=== PATIENT | female | born 1955 | race Caucasian/White ===

== ENCOUNTER 2020-05-04 08:43 | Observation (INO) | payer BC ==
--- NOTE | 2020-05-04 09:08 | EDM.PDOC ---
ED HPI GENERAL MEDICAL PROBLEM - General Chief Complaint: Syncope Stated Complaint: syncope Time Seen by Provider: 05/04/20 09:08 Source of Information: Reports: Patient History Limitations: Reports: No Limitations - History of Present Illness INITIAL COMMENTS - FREE TEXT/NARRATIVE: 64 yo F who presented to the ER following a syncope episode in [facility] and was found to be Hypoglycemic with Blood sugar 26. Reports that she had a very small supper and this morning she had a small cranberry juice before going to [facility]. While at [facility], she apparently passed out. A physician who was nearby did 2 chest compressions - was unclear if patient actually lost her pulse. EMS was called and on arrival blood sugar was 26. EMS administered glucose at the scene and Blood sugar on arrival to the ER was 84. Family noted that patient has had another episode of syncope about 2 years ago -- was evaluated in the ER at the time but was never followed up. No fever. Onset: Today Onset Date: 05/04/20 Improves with: Reports: None - Related Data Allergies Allergy/AdvReac Type Severity Reaction Status Date / Time No Known Allergies Allergy Verified 05/04/20 09:02 Home Meds: Home Meds Aspirin [Adult Low Dose Aspirin EC] 81 mg PO DAILY 05/04/20 [History] Folic Acid 0 mg PO DAILY 05/04/20 [History] Vit A/C/E AC/Znox/Cupric Oxide [Eye Vitamin-Minerals Tablet] 1 tab PO DAILY 05/04/20 [History] ED ROS GENERAL - Review of Systems Review Of Systems: See Below Constitutional: Reports: No Symptoms HEENT: Reports: No Symptoms Respiratory: Reports: No Symptoms Cardiovascular: Reports: No Symptoms Endocrine: Reports: No Symptoms GI/Abdominal: Reports: No Symptoms : Reports: No Symptoms Musculoskeletal: Reports: No Symptoms Skin: Reports: No Symptoms Neurological: Reports: No Symptoms Psychiatric: Reports: No Symptoms Hematologic/Lymphatic: Reports: No Symptoms Immunologic: Reports: No Symptoms - Physical Exam Exam: See Below Exam Limited By: No Limitations General Appearance: Alert, WD/WN, No Apparent Distress Eye Exam: Bilateral Eye: PERRL Ears: Normal External Exam, Normal Canal, Normal TMs Nose: Normal Inspection, Normal Mucosa, No Blood Throat/Mouth: Normal Inspection, Normal Lips, Normal Teeth, Normal Gums, Normal Oropharynx, Normal Voice Head Exam: Atraumatic, Normocephalic Neck: Normal Inspection, Supple, Non-Tender, Full Range of Motion Respiratory/Chest: No Respiratory Distress, Lungs Clear, Normal Breath Sounds, No Accessory Muscle Use Cardiovascular: Normal Peripheral Pulses, Regular Rate, Rhythm, No Edema GI/Abdominal: Normal Bowel Sounds, Soft, Non-Tender, No Organomegaly, No Distention Neuro Exam (Abbreviated): Alert, Oriented, CN II-XII Intact, Normal Cognition, Normal Gait, Normal Reflexes, No Motor/Sensory Deficits Back Exam: Normal Inspection Extremities: Normal Inspection, Normal Range of Motion, Non-Tender, No Pedal Edema Psychiatric: Normal Affect, Normal Mood Skin Exam: Warm, Dry, Intact, Normal Color, No Rash Course - Orders/Labs/Meds Orders: Active Orders 24 hr Category Date Time Status CXR [Chest 2V] [CR] Stat Exams 05/04/20 09:19 Taken Head wo Cont [CT] Stat Exams 05/04/20 09:05 Taken CORONAVIRUS COVID-19 SONIA [MOLEC] Stat Lab 05/04/20 12:19 Ordered Sodium Chloride 0.9% [Normal Saline] 1,000 ml Med 05/04/20 09:15 Active IV ASDIRECTED Sodium Chloride 0.9% [Saline Flush] Med 05/04/20 09:17 Active 10 ml FLUSH ASDIRECTED PRN Peripheral IV Insertion Adult [OM.PC] Routine Oth 05/04/20 08:45 Ordered Medication Orders Sodium Chloride (Normal Saline) 1,000 mls @ 100 mls/hr IV ASDIRECTED WILY Last Admin: 05/04/20 09:11 Dose: 100 mls/hr Documented by: AMARI Sodium Chloride (Saline Flush) 10 ml FLUSH ASDIRECTED PRN PRN Reason: Keep Vein Open Labs: Laboratory Tests 05/04/20 05/04/20 05/04/20 Range/Units 08:48 09:15 09:15 WBC 7.2 (3.0-10.3) x10-3/uL RBC 4.93 (3.60-5.20) x10(6)uL Hgb 14.9 (11.4-15.5) g/dL Hct 44.2 (34.2-48.2) % MCV 89.8 (76.7-100.5) fL MCH 30.2 (23.9-33.9) pg MCHC 33.6 (31.9-34.8) g/dL RDW 13.6 (12.3-16.5) % Plt Count 185 (151-488) x10(3)uL MPV 7.6 (7.1-12.4) fL Neut % (Auto) 81.7 H (30.8-76.2) % Lymph % (Auto) 11.9 L (18.4-52.1) % [place] % (Auto) 5.4 (4.4-15.7) % Eos % (Auto) 0.6 (0.6-8.1) % Baso % (Auto) 0.4 (0.2-1.5) % Neut # (Auto) 5.9 (1.5-6.3) x10-3/uL Lymph # (Auto) 0.9 L (1.0-4.4) x10-3/uL [place] # (Auto) 0.4 (0.3-1.0) x10-3/uL Eos # (Auto) 0.0 (0.0-0.8) x10-3/uL Baso # (Auto) 0.0 (0.0-0.1) x10-3/uL Sodium 134 L (135-145) mmol/L Potassium 4.2 (3.5-5.3) mmol/L Chloride 98 L (100-110) mmol/L Carbon Dioxide 24 (21-32) mmol/L BUN 11 (7-18) mg/dL Creatinine 0.8 (0.55-1.02) mg/dL Est Cr Clr Drug Dosing TNP Estimated GFR (MDRD) > 60 (>60) BUN/Creatinine Ratio 13.8 (9-20) Glucose 140 H (80-116) mg/dL POC Glucose 84 (74-100) mg/dL Hemoglobin A1c (<5.7) % Calcium 9.1 (8.6-10.2) mg/dL Total Bilirubin 0.7 (0.1-1.3) mg/dL AST 19 (5-25) IU/L ALT 21 (12-36) U/L Alkaline Phosphatase 62 (56-112) IU/L Troponin I (4.0-60.3) pg/mL Total Protein 6.9 (6.0-8.0) g/dL Albumin 4.1 (3.2-4.6) g/dL Globulin 2.8 g/dL Albumin/Globulin Ratio 1.5 TSH, Ultra Sensitive (0.36-3.74) IU/mL Urine Color (YELLOW) Urine Appearance (CLEAR) Urine pH (5.0-6.5) Ur Specific [place] (1.010-1.025) Urine Protein (NEGATIVE) mg/dL Urine Glucose (UA) (NORMAL) mg/dL Urine Ketones (NEGATIVE) mg/dL Urine Occult Blood (NEGATIVE) Urine Nitrite (NEGATIVE) Urine Bilirubin (NEGATIVE) Urine Urobilinogen (NEGATIVE) mg/dL Ur Leukocyte Esterase (NEGATIVE) U Hyaline Cast (Auto) (NS) Urine RBC (0-5) Urine WBC (0-5) Ur Squamous Epith Cells (NS,R,O) Urine Bacteria (NS) Fine Granular Casts (NS) Coarse Granular Casts (NS) 05/04/20 05/04/20 05/04/20 Range/Units 09:15 09:15 09:15 WBC (3.0-10.3) x10-3/uL RBC (3.60-5.20) x10(6)uL Hgb (11.4-15.5) g/dL Hct (34.2-48.2) % MCV (76.7-100.5) fL MCH (23.9-33.9) pg MCHC (31.9-34.8) g/dL RDW (12.3-16.5) % Plt Count (151-488) x10(3)uL MPV (7.1-12.4) fL Neut % (Auto) (30.8-76.2) % Lymph % (Auto) (18.4-52.1) % [place] % (Auto) (4.4-15.7) % Eos % (Auto) (0.6-8.1) % Baso % (Auto) (0.2-1.5) % Neut # (Auto) (1.5-6.3) x10-3/uL Lymph # (Auto) (1.0-4.4) x10-3/uL [place] # (Auto) (0.3-1.0) x10-3/uL Eos # (Auto) (0.0-0.8) x10-3/uL Baso # (Auto) (0.0-0.1) x10-3/uL Sodium (135-145) mmol/L Potassium (3.5-5.3) mmol/L Chloride (100-110) mmol/L Carbon Dioxide (21-32) mmol/L BUN (7-18) mg/dL Creatinine (0.55-1.02) mg/dL Est Cr Clr Drug Dosing Estimated GFR (MDRD) (>60) BUN/Creatinine Ratio (9-20) Glucose (80-116) mg/dL POC Glucose (74-100) mg/dL Hemoglobin A1c 4.9 (<5.7) % Calcium (8.6-10.2) mg/dL Total Bilirubin (0.1-1.3) mg/dL AST (5-25) IU/L ALT (12-36) U/L Alkaline Phosphatase (56-112) IU/L Troponin I < 4.0 L (4.0-60.3) pg/mL Total Protein (6.0-8.0) g/dL Albumin (3.2-4.6) g/dL Globulin g/dL Albumin/Globulin Ratio TSH, Ultra Sensitive 3.67 (0.36-3.74) IU/mL Urine Color (YELLOW) Urine Appearance (CLEAR) Urine pH (5.0-6.5) Ur Specific [place] (1.010-1.025) Urine Protein (NEGATIVE) mg/dL Urine Glucose (UA) (NORMAL) mg/dL Urine Ketones (NEGATIVE) mg/dL Urine Occult Blood (NEGATIVE) Urine Nitrite (NEGATIVE) Urine Bilirubin (NEGATIVE) Urine Urobilinogen (NEGATIVE) mg/dL Ur Leukocyte Esterase (NEGATIVE) U Hyaline Cast (Auto) (NS) Urine RBC (0-5) Urine WBC (0-5) Ur Squamous Epith Cells (NS,R,O) Urine Bacteria (NS) Fine Granular Casts (NS) Coarse Granular Casts (NS) 05/04/20 05/04/20 Range/Units 09:45 11:48 WBC (3.0-10.3) x10-3/uL RBC (3.60-5.20) x10(6)uL Hgb (11.4-15.5) g/dL Hct (34.2-48.2) % MCV (76.7-100.5) fL MCH (23.9-33.9) pg MCHC (31.9-34.8) g/dL RDW (12.3-16.5) % Plt Count (151-488) x10(3)uL MPV (7.1-12.4) fL Neut % (Auto) (30.8-76.2) % Lymph % (Auto) (18.4-52.1) % [place] % (Auto) (4.4-15.7) % Eos % (Auto) (0.6-8.1) % Baso % (Auto) (0.2-1.5) % Neut # (Auto) (1.5-6.3) x10-3/uL Lymph # (Auto) (1.0-4.4) x10-3/uL [place] # (Auto) (0.3-1.0) x10-3/uL Eos # (Auto) (0.0-0.8) x10-3/uL Baso # (Auto) (0.0-0.1) x10-3/uL Sodium (135-145) mmol/L Potassium (3.5-5.3) mmol/L Chloride (100-110) mmol/L Carbon Dioxide (21-32) mmol/L BUN (7-18) mg/dL Creatinine (0.55-1.02) mg/dL Est Cr Clr Drug Dosing Estimated GFR (MDRD) (>60) BUN/Creatinine Ratio (9-20) Glucose (80-116) mg/dL POC Glucose 161 H (74-100) mg/dL Hemoglobin A1c (<5.7) % Calcium (8.6-10.2) mg/dL Total Bilirubin (0.1-1.3) mg/dL AST (5-25) IU/L ALT (12-36) U/L Alkaline Phosphatase (56-112) IU/L Troponin I (4.0-60.3) pg/mL Total Protein (6.0-8.0) g/dL Albumin (3.2-4.6) g/dL Globulin g/dL Albumin/Globulin Ratio TSH, Ultra Sensitive (0.36-3.74) IU/mL Urine Color Yellow (YELLOW) Urine Appearance Clear (CLEAR) Urine pH 7.0 H (5.0-6.5) Ur Specific [place] 1.010 (1.010-1.025) Urine Protein Trace (NEGATIVE) mg/dL Urine Glucose (UA) Normal (NORMAL) mg/dL Urine Ketones 15 H (NEGATIVE) mg/dL Urine Occult Blood Negative (NEGATIVE) Urine Nitrite Negative (NEGATIVE) Urine Bilirubin Negative (NEGATIVE) Urine Urobilinogen Normal (NEGATIVE) mg/dL Ur Leukocyte Esterase Negative (NEGATIVE) U Hyaline Cast (Auto) Many H (NS) Urine RBC 0-5 (0-5) Urine WBC 0-5 (0-5) Ur Squamous Epith Cells Occasional (NS,R,O) Urine Bacteria Rare H (NS) Fine Granular Casts Moderate H (NS) Coarse Granular Casts Moderate H (NS) Meds: Medications Generic Name Dose Route Start Last Admin Trade Name Freq PRN Reason Stop Dose Admin Sodium Chloride 1,000 mls @ 100 mls/hr 05/04/20 09:15 05/04/20 09:11 Normal Saline IV 100 mls/hr ASDIRECTED WILY Administration Sodium Chloride 10 ml 05/04/20 09:17 Saline Flush FLUSH ASDIRECTED PRN Keep Vein Open - Re-Assessments/Exams Free Text/Narrative Re-Assessment/Exam: 05/04/20 13:13 D/w Dr. Du -- Who graciously admitted patient to the Hospital for observation Departure - Departure Time of Disposition: 10:46 Disposition: Admitted As Inpatient 67 Condition: Good Clinical Impression: Hypoglycemia, Syncope, Syncope and collapse - Discharge Information *PRESCRIPTION DRUG MONITORING PROGRAM REVIEWED*: No *COPY OF PRESCRIPTION DRUG MONITORING REPORT IN PATIENT AUGUSTIN: No - Problem List & Annotations (1) Hypoglycemia SNOMED Code(s): 671000691 Code(s): E16.2 - HYPOGLYCEMIA, UNSPECIFIED Status: Acute Current Visit: Yes - Problem List Review Problem List Initiated/Reviewed/Updated: Yes - My Orders Last 24 Hours: My Active Orders 05/04/20 08:45 Peripheral IV Insertion Adult [OM.PC] Routine 05/04/20 09:05 Head wo Cont [CT] Stat 05/04/20 09:15 Sodium Chloride 0.9% [Normal Saline] 1,000 ml IV ASDIRECTED 05/04/20 09:17 Sodium Chloride 0.9% [Saline Flush] 10 ml FLUSH ASDIRECTED PRN 05/04/20 09:19 CXR [Chest 2V] [CR] Stat - Assessment/Plan Last 24 Hours: My Active Orders 05/04/20 08:45 Peripheral IV Insertion Adult [OM.PC] Routine 05/04/20 09:05 Head wo Cont [CT] Stat 05/04/20 09:15 Sodium Chloride 0.9% [Normal Saline] 1,000 ml IV ASDIRECTED 05/04/20 09:17 Sodium Chloride 0.9% [Saline Flush] 10 ml FLUSH ASDIRECTED PRN 05/04/20 09:19 CXR [Chest 2V] [CR] Stat
[2020-05-04] MEDS ORDERED: Sodium Chloride 0.9% 1,000 ML IV SCH (09:15)
[2020-05-04] MEDS ORDERED: Sodium Chloride 0.9% 10 ML Syringe FLUSH PRN (09:17)
[2020-05-04 09:44] LABS: HEMOGLOBIN A1C 4.9 % (<5.7)
[2020-05-04] MEDS ORDERED: Enoxaparin 40 MG/0.4 ML Syringe SUBCUT SCH (13:30)
--- NOTE | 2020-05-04 13:40 | PCM.HP.2 ---
H&P History of Present Illness - General Date of Service: 05/04/20 Admit Problem/Dx: Admission Diagnosis/Problem Admission Diagnosis/Problem Syncope Source of Information: Patient, EMS, Family History Limitations: Reports: No Limitations - History of Present Illness Initial Comments - Free Text/Narative: This is a 64-year-old female patient that's previously healthy. She was in buddhism and she felt lightheaded and like she was going to pass out. She told her and grabbed her mask and the next thing she no she was waking up on the ground. Her states that he called Dr. Green was attending a buddhism. Dr. Green talk to the ER nurses stated he couldn't feel a pulse and did to chest compressions and she woke up. After that she felt relatively well. Patient has lost 160 pounds in the last several years and That off. She has no medical problems. She had her tonsils removed and that's the only surgery she's had. She is only on [id number] medications. She denies diplopia, blurred vision, dysphagia, aphasia, lateralized weakness. She denies palpitations. She had an episode where she had like a syncopal episode in a car onetime years ago. He says she's been feeling well without cough, fevers, chills, runny nose. She says she does have some anxiety that she is able to maintain without medications. Ambulance arrived and her blood sugar was 24 and the gave her some glucose by mouth as she was easily able to take. It was over in the 80s when she arrived to the hospital. 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: - Past Surgical History HEENT Surgical History: Reports: Tonsillectomy Social & Family History - Tobacco Use Tobacco Use Status *Q: Never Tobacco User - Alcohol Use Days Per Week of Alcohol Use: 3 Number of Drinks Per Day: 4 Total Drinks Per Week: 12 - Recreational Drug Use Recreational Drug Use: No H&P Review of Systems - Review of Systems: Review Of Systems: See Below General: Reports: No Symptoms HEENT: Reports: No Symptoms Pulmonary: Reports: No Symptoms Cardiovascular: Reports: No Symptoms Gastrointestinal: Reports: No Symptoms Genitourinary: Reports: No Symptoms Musculoskeletal: Reports: No Symptoms Skin: Reports: No Symptoms Psychiatric: Reports: Anxiety Neurological: Reports: Syncope Hematologic/Lymphatic: Reports: No Symptoms Immunologic: Reports: No Symptoms Exam - Exam Exam: See Below - Vital Signs Weight: 165 lb - Exam General: Alert, Oriented, Cooperative HEENT: PERRLA, Conjunctiva Clear, EACs Clear, EOMI, Hearing Intact, Mucosa Moist & [place], Nares Patent, Normal Nasal Septum, Posterior Pharynx Clear, Pupils Equal, Pupils Reactive, TMs Clear, Other (Not able to visualize the fundus.) Neck: Supple, Trachea Midline, Full Range of Motion. No: Carotid Bruit Lungs: Clear to Auscultation, Normal Respiratory Effort. No: Crackles, Rales, Rhonchi Cardiovascular: Regular Rate, Regular Rhythm, Systolic Murmur GI/Abdominal Exam: Normal Bowel Sounds, Soft, Non-Tender, No Organomegaly, No Distention, No Abnormal Bruit, No Mass Back Exam: Normal Inspection, Full Range of Motion Extremities: Normal Inspection, Normal Range of Motion, Non-Tender, No Pedal Edema Skin: Warm, Intact Neurological: Cranial Nerves Intact, Reflexes Equal Bilateral, Strength Equal Bilateral, Normal Gait, Normal Speech, Normal Tone, Sensation Intact Neuro Extensive - Mental Status: Alert, Oriented x3, Normal Mood/Affect, Normal Cognition, Memory Intact Neuro Extensive - Motor, Sensory, Reflexes: CN II-XII Intact, Normal Gait Psychiatric: Alert, Normal Affect, Normal Mood - Patient Data Lab Results Last 24 hrs: Laboratory Results - last 24 hr 05/04/20 05/04/20 05/04/20 Range/Units 08:48 09:15 09:15 WBC 7.2 (3.0-10.3) x10-3/uL RBC 4.93 (3.60-5.20) x10(6)uL Hgb 14.9 (11.4-15.5) g/dL Hct 44.2 (34.2-48.2) % MCV 89.8 (76.7-100.5) fL MCH 30.2 (23.9-33.9) pg MCHC 33.6 (31.9-34.8) g/dL RDW 13.6 (12.3-16.5) % Plt Count 185 (151-488) x10(3)uL MPV 7.6 (7.1-12.4) fL Neut % (Auto) 81.7 H (30.8-76.2) % Lymph % (Auto) 11.9 L (18.4-52.1) % [place] % (Auto) 5.4 (4.4-15.7) % Eos % (Auto) 0.6 (0.6-8.1) % Baso % (Auto) 0.4 (0.2-1.5) % Neut # (Auto) 5.9 (1.5-6.3) x10-3/uL Lymph # (Auto) 0.9 L (1.0-4.4) x10-3/uL [place] # (Auto) 0.4 (0.3-1.0) x10-3/uL Eos # (Auto) 0.0 (0.0-0.8) x10-3/uL Baso # (Auto) 0.0 (0.0-0.1) x10-3/uL Sodium 134 L (135-145) mmol/L Potassium 4.2 (3.5-5.3) mmol/L Chloride 98 L (100-110) mmol/L Carbon Dioxide 24 (21-32) mmol/L BUN 11 (7-18) mg/dL Creatinine 0.8 (0.55-1.02) mg/dL Est Cr Clr Drug Dosing TNP Estimated GFR (MDRD) > 60 (>60) BUN/Creatinine Ratio 13.8 (9-20) Glucose 140 H (80-116) mg/dL POC Glucose 84 (74-100) mg/dL Hemoglobin A1c (<5.7) % Calcium 9.1 (8.6-10.2) mg/dL Total Bilirubin 0.7 (0.1-1.3) mg/dL AST 19 (5-25) IU/L ALT 21 (12-36) U/L Alkaline Phosphatase 62 (56-112) IU/L Troponin I (4.0-60.3) pg/mL Total Protein 6.9 (6.0-8.0) g/dL Albumin 4.1 (3.2-4.6) g/dL Globulin 2.8 g/dL Albumin/Globulin Ratio 1.5 TSH, Ultra Sensitive (0.36-3.74) IU/mL Urine Color (YELLOW) Urine Appearance (CLEAR) Urine pH (5.0-6.5) Ur Specific [place] (1.010-1.025) Urine Protein (NEGATIVE) mg/dL Urine Glucose (UA) (NORMAL) mg/dL Urine Ketones (NEGATIVE) mg/dL Urine Occult Blood (NEGATIVE) Urine Nitrite (NEGATIVE) Urine Bilirubin (NEGATIVE) Urine Urobilinogen (NEGATIVE) mg/dL Ur Leukocyte Esterase (NEGATIVE) U Hyaline Cast (Auto) (NS) Urine RBC (0-5) Urine WBC (0-5) Ur Squamous Epith Cells (NS,R,O) Urine Bacteria (NS) Fine Granular Casts (NS) Coarse Granular Casts (NS) SARS-CoV-2 RNA (SONIA) (NEGATIVE) 05/04/20 05/04/20 05/04/20 Range/Units 09:15 09:15 09:15 WBC (3.0-10.3) x10-3/uL RBC (3.60-5.20) x10(6)uL Hgb (11.4-15.5) g/dL Hct (34.2-48.2) % MCV (76.7-100.5) fL MCH (23.9-33.9) pg MCHC (31.9-34.8) g/dL RDW (12.3-16.5) % Plt Count (151-488) x10(3)uL MPV (7.1-12.4) fL Neut % (Auto) (30.8-76.2) % Lymph % (Auto) (18.4-52.1) % [place] % (Auto) (4.4-15.7) % Eos % (Auto) (0.6-8.1) % Baso % (Auto) (0.2-1.5) % Neut # (Auto) (1.5-6.3) x10-3/uL Lymph # (Auto) (1.0-4.4) x10-3/uL [place] # (Auto) (0.3-1.0) x10-3/uL Eos # (Auto) (0.0-0.8) x10-3/uL Baso # (Auto) (0.0-0.1) x10-3/uL Sodium (135-145) mmol/L Potassium (3.5-5.3) mmol/L Chloride (100-110) mmol/L Carbon Dioxide (21-32) mmol/L BUN (7-18) mg/dL Creatinine (0.55-1.02) mg/dL Est Cr Clr Drug Dosing Estimated GFR (MDRD) (>60) BUN/Creatinine Ratio (9-20) Glucose (80-116) mg/dL POC Glucose (74-100) mg/dL Hemoglobin A1c 4.9 (<5.7) % Calcium (8.6-10.2) mg/dL Total Bilirubin (0.1-1.3) mg/dL AST (5-25) IU/L ALT (12-36) U/L Alkaline Phosphatase (56-112) IU/L Troponin I < 4.0 L (4.0-60.3) pg/mL Total Protein (6.0-8.0) g/dL Albumin (3.2-4.6) g/dL Globulin g/dL Albumin/Globulin Ratio TSH, Ultra Sensitive 3.67 (0.36-3.74) IU/mL Urine Color (YELLOW) Urine Appearance (CLEAR) Urine pH (5.0-6.5) Ur Specific [place] (1.010-1.025) Urine Protein (NEGATIVE) mg/dL Urine Glucose (UA) (NORMAL) mg/dL Urine Ketones (NEGATIVE) mg/dL Urine Occult Blood (NEGATIVE) Urine Nitrite (NEGATIVE) Urine Bilirubin (NEGATIVE) Urine Urobilinogen (NEGATIVE) mg/dL Ur Leukocyte Esterase (NEGATIVE) U Hyaline Cast (Auto) (NS) Urine RBC (0-5) Urine WBC (0-5) Ur Squamous Epith Cells (NS,R,O) Urine Bacteria (NS) Fine Granular Casts (NS) Coarse Granular Casts (NS) SARS-CoV-2 RNA (SONIA) (NEGATIVE) 05/04/20 05/04/20 05/04/20 Range/Units 09:45 11:48 12:19 WBC (3.0-10.3) x10-3/uL RBC (3.60-5.20) x10(6)uL Hgb (11.4-15.5) g/dL Hct (34.2-48.2) % MCV (76.7-100.5) fL MCH (23.9-33.9) pg MCHC (31.9-34.8) g/dL RDW (12.3-16.5) % Plt Count (151-488) x10(3)uL MPV (7.1-12.4) fL Neut % (Auto) (30.8-76.2) % Lymph % (Auto) (18.4-52.1) % [place] % (Auto) (4.4-15.7) % Eos % (Auto) (0.6-8.1) % Baso % (Auto) (0.2-1.5) % Neut # (Auto) (1.5-6.3) x10-3/uL Lymph # (Auto) (1.0-4.4) x10-3/uL [place] # (Auto) (0.3-1.0) x10-3/uL Eos # (Auto) (0.0-0.8) x10-3/uL Baso # (Auto) (0.0-0.1) x10-3/uL Sodium (135-145) mmol/L Potassium (3.5-5.3) mmol/L Chloride (100-110) mmol/L Carbon Dioxide (21-32) mmol/L BUN (7-18) mg/dL Creatinine (0.55-1.02) mg/dL Est Cr Clr Drug Dosing Estimated GFR (MDRD) (>60) BUN/Creatinine Ratio (9-20) Glucose (80-116) mg/dL POC Glucose 161 H (74-100) mg/dL Hemoglobin A1c (<5.7) % Calcium (8.6-10.2) mg/dL Total Bilirubin (0.1-1.3) mg/dL AST (5-25) IU/L ALT (12-36) U/L Alkaline Phosphatase (56-112) IU/L Troponin I (4.0-60.3) pg/mL Total Protein (6.0-8.0) g/dL Albumin (3.2-4.6) g/dL Globulin g/dL Albumin/Globulin Ratio TSH, Ultra Sensitive (0.36-3.74) IU/mL Urine Color Yellow (YELLOW) Urine Appearance Clear (CLEAR) Urine pH 7.0 H (5.0-6.5) Ur Specific [place] 1.010 (1.010-1.025) Urine Protein Trace (NEGATIVE) mg/dL Urine Glucose (UA) Normal (NORMAL) mg/dL Urine Ketones 15 H (NEGATIVE) mg/dL Urine Occult Blood Negative (NEGATIVE) Urine Nitrite Negative (NEGATIVE) Urine Bilirubin Negative (NEGATIVE) Urine Urobilinogen Normal (NEGATIVE) mg/dL Ur Leukocyte Esterase Negative (NEGATIVE) U Hyaline Cast (Auto) Many H (NS) Urine RBC 0-5 (0-5) Urine WBC 0-5 (0-5) Ur Squamous Epith Cells Occasional (NS,R,O) Urine Bacteria Rare H (NS) Fine Granular Casts Moderate H (NS) Coarse Granular Casts Moderate H (NS) SARS-CoV-2 RNA (SONIA) Negative (NEGATIVE) Result Diagrams: 05/04/20 09:15 05/04/20 09:15 Imaging Impressions Last 24 hrs: CT scans negative of the head. Chest x-ray looks normal with no acute changes. #1 Interpretation EKG Date: 05/04/20 Rhythm: NSR - Problem List (1) Hyponatremia SNOMED Code(s): 04949670 ICD Code: E87.1 - HYPO-OSMOLALITY AND HYPONATREMIA Status: Acute Current Visit: Yes (2) Hypoglycemia SNOMED Code(s): 651398329 ICD Code: E16.2 - HYPOGLYCEMIA, UNSPECIFIED Status: Acute Current Visit: Yes (3) Syncope SNOMED Code(s): 217253601 ICD Code: R55 - SYNCOPE AND COLLAPSE Status: Acute Current Visit: Yes Problem List Initiated/Reviewed/Updated: Yes Orders Last 24hrs: Active Orders 24 hr Category Date Time Status Admission Status [Patient Status] [ADT] Routine ADT 05/04/20 12:41 Active Patient Status [ADT] Routine ADT 05/04/20 13:29 Ordered EKG Documentation Completion [RC] ASDIRECTED Care 05/04/20 13:31 Ordered Oxygen Therapy [RC] PRN Care 05/04/20 13:29 Ordered Telemetry Monitoring [Cardiac Monitoring] [RC] .As Care 05/04/20 13:33 Ordered Directed Up With Assistance [RC] ASDIRECTED Care 05/04/20 13:29 Ordered VTE/DVT Education [RC] Per Unit Routine Care 05/04/20 13:29 Ordered Vital Signs [RC] Q4H Care 05/04/20 13:29 Ordered Regular Diet [DIET] Diet 05/04/20 Dinner Ordered CXR [Chest 2V] [CR] Stat Exams 05/04/20 09:19 Taken Echo Comp w Cont [US] Routine Exams 05/04/20 13:32 Ordered Head wo Cont [CT] Stat Exams 05/04/20 09:05 Taken CBC WITH AUTO DIFF [HEME] AM Lab 05/05/20 05:11 Ordered COMPREHENSIVE METABOLIC PN,CMP [CHEM] AM Lab 05/05/20 05:11 Ordered TROPONIN I [CHEM] AM Lab 05/05/20 05:11 Ordered Enoxaparin [Lovenox] Med 05/04/20 13:30 Ordered 40 mg SUBCUT Q24H Sodium Chloride 0.9% [Normal Saline] 1,000 ml Med 05/04/20 09:15 Stop Req IV ASDIRECTED Sodium Chloride 0.9% [Saline Flush] Med 05/04/20 09:17 Active 10 ml FLUSH ASDIRECTED PRN Convert IV to Saline Lock [OM.PC] Routine Oth 05/04/20 13:32 Ordered Peripheral IV Insertion Adult [OM.PC] Routine Oth 05/04/20 08:45 Ordered Resuscitation Status Routine Resus Stat 05/04/20 13:29 Ordered EKG 12 Lead [EK] AM Ther 05/05/20 05:11 Ordered Medication Orders Enoxaparin Sodium (Lovenox) 40 mg SUBCUT Q24H WILY Sodium Chloride (Normal Saline) 1,000 mls @ 100 mls/hr IV ASDIRECTED WILY Last Admin: 05/04/20 09:11 Dose: 100 mls/hr Documented by: AMARI Sodium Chloride (Saline Flush) 10 ml FLUSH ASDIRECTED PRN PRN Reason: Keep Vein Open Assessment/Plan Comment:: 1. Admit for observation on telemetry. 2. Patient is able to drink so stop IV fluids and saline lock IV. 3. Up with assist. 4. Recheck chem 12, CBC, troponin and EKG in the a.m. 5. Echocardiogram for new systolic murmur. 6. Regular diet 7. His hold her [id number] medications 8. COVID 19 pending 9. VTE fluxes with Lovenox 10. Full code. - Mortality Measure Prognosis:: Poor
--- NOTE | 2020-05-05 08:57 | PCM.PN ---
- General Info Date of Service: 05/05/20 Admission Dx/Problem (Free Text): Patient without concerns. She felt good all night. She had no dizziness, lightheadedness, palpitations, chest pain, shortness of breath. Telemetry normal sinus rhythm without any arrhythmias. - Patient Data Vitals - Most Recent: Last Vital Signs Temp 97.9 F 05/05/20 04:26 Pulse 75 05/05/20 04:26 Resp 16 05/05/20 04:26 BP 133/85 05/05/20 04:26 Pulse Ox 98 05/05/20 04:26 Orthostatic Blood Pressure [ 122/89 Standing] Orthostatic Blood Pressure [ 120/68 Sitting] Orthostatic Blood Pressure [ 112/62 Supine] Weight - Most Recent: 170 lb 1 oz Lab Results Last 24 Hours: Laboratory Results - last 24 hr 05/04/20 05/04/20 05/04/20 Range/Units 08:48 09:15 09:15 WBC 7.2 (3.0-10.3) x10-3/uL RBC 4.93 (3.60-5.20) x10(6)uL Hgb 14.9 (11.4-15.5) g/dL Hct 44.2 (34.2-48.2) % MCV 89.8 (76.7-100.5) fL MCH 30.2 (23.9-33.9) pg MCHC 33.6 (31.9-34.8) g/dL RDW 13.6 (12.3-16.5) % Plt Count 185 (151-488) x10(3)uL MPV 7.6 (7.1-12.4) fL Neut % (Auto) 81.7 H (30.8-76.2) % Lymph % (Auto) 11.9 L (18.4-52.1) % [place] % (Auto) 5.4 (4.4-15.7) % Eos % (Auto) 0.6 (0.6-8.1) % Baso % (Auto) 0.4 (0.2-1.5) % Neut # (Auto) 5.9 (1.5-6.3) x10-3/uL Lymph # (Auto) 0.9 L (1.0-4.4) x10-3/uL [place] # (Auto) 0.4 (0.3-1.0) x10-3/uL Eos # (Auto) 0.0 (0.0-0.8) x10-3/uL Baso # (Auto) 0.0 (0.0-0.1) x10-3/uL Sodium 134 L (135-145) mmol/L Potassium 4.2 (3.5-5.3) mmol/L Chloride 98 L (100-110) mmol/L Carbon Dioxide 24 (21-32) mmol/L BUN 11 (7-18) mg/dL Creatinine 0.8 (0.55-1.02) mg/dL Est Cr Clr Drug Dosing TNP Estimated GFR (MDRD) > 60 (>60) BUN/Creatinine Ratio 13.8 (9-20) Glucose 140 H (80-116) mg/dL POC Glucose 84 (74-100) mg/dL Hemoglobin A1c (<5.7) % Calcium 9.1 (8.6-10.2) mg/dL Total Bilirubin 0.7 (0.1-1.3) mg/dL AST 19 (5-25) IU/L ALT 21 (12-36) U/L Alkaline Phosphatase 62 (56-112) IU/L Troponin I (4.0-60.3) pg/mL Total Protein 6.9 (6.0-8.0) g/dL Albumin 4.1 (3.2-4.6) g/dL Globulin 2.8 g/dL Albumin/Globulin Ratio 1.5 TSH, Ultra Sensitive (0.36-3.74) IU/mL Urine Color (YELLOW) Urine Appearance (CLEAR) Urine pH (5.0-6.5) Ur Specific [place] (1.010-1.025) Urine Protein (NEGATIVE) mg/dL Urine Glucose (UA) (NORMAL) mg/dL Urine Ketones (NEGATIVE) mg/dL Urine Occult Blood (NEGATIVE) Urine Nitrite (NEGATIVE) Urine Bilirubin (NEGATIVE) Urine Urobilinogen (NEGATIVE) mg/dL Ur Leukocyte Esterase (NEGATIVE) U Hyaline Cast (Auto) (NS) Urine RBC (0-5) Urine WBC (0-5) Ur Squamous Epith Cells (NS,R,O) Urine Bacteria (NS) Fine Granular Casts (NS) Coarse Granular Casts (NS) SARS-CoV-2 RNA (SONIA) (NEGATIVE) 05/04/20 05/04/20 05/04/20 Range/Units 09:15 09:15 09:15 WBC (3.0-10.3) x10-3/uL RBC (3.60-5.20) x10(6)uL Hgb (11.4-15.5) g/dL Hct (34.2-48.2) % MCV (76.7-100.5) fL MCH (23.9-33.9) pg MCHC (31.9-34.8) g/dL RDW (12.3-16.5) % Plt Count (151-488) x10(3)uL MPV (7.1-12.4) fL Neut % (Auto) (30.8-76.2) % Lymph % (Auto) (18.4-52.1) % [place] % (Auto) (4.4-15.7) % Eos % (Auto) (0.6-8.1) % Baso % (Auto) (0.2-1.5) % Neut # (Auto) (1.5-6.3) x10-3/uL Lymph # (Auto) (1.0-4.4) x10-3/uL [place] # (Auto) (0.3-1.0) x10-3/uL Eos # (Auto) (0.0-0.8) x10-3/uL Baso # (Auto) (0.0-0.1) x10-3/uL Sodium (135-145) mmol/L Potassium (3.5-5.3) mmol/L Chloride (100-110) mmol/L Carbon Dioxide (21-32) mmol/L BUN (7-18) mg/dL Creatinine (0.55-1.02) mg/dL Est Cr Clr Drug Dosing Estimated GFR (MDRD) (>60) BUN/Creatinine Ratio (9-20) Glucose (80-116) mg/dL POC Glucose (74-100) mg/dL Hemoglobin A1c 4.9 (<5.7) % Calcium (8.6-10.2) mg/dL Total Bilirubin (0.1-1.3) mg/dL AST (5-25) IU/L ALT (12-36) U/L Alkaline Phosphatase (56-112) IU/L Troponin I < 4.0 L (4.0-60.3) pg/mL Total Protein (6.0-8.0) g/dL Albumin (3.2-4.6) g/dL Globulin g/dL Albumin/Globulin Ratio TSH, Ultra Sensitive 3.67 (0.36-3.74) IU/mL Urine Color (YELLOW) Urine Appearance (CLEAR) Urine pH (5.0-6.5) Ur Specific [place] (1.010-1.025) Urine Protein (NEGATIVE) mg/dL Urine Glucose (UA) (NORMAL) mg/dL Urine Ketones (NEGATIVE) mg/dL Urine Occult Blood (NEGATIVE) Urine Nitrite (NEGATIVE) Urine Bilirubin (NEGATIVE) Urine Urobilinogen (NEGATIVE) mg/dL Ur Leukocyte Esterase (NEGATIVE) U Hyaline Cast (Auto) (NS) Urine RBC (0-5) Urine WBC (0-5) Ur Squamous Epith Cells (NS,R,O) Urine Bacteria (NS) Fine Granular Casts (NS) Coarse Granular Casts (NS) SARS-CoV-2 RNA (SONIA) (NEGATIVE) 05/04/20 05/04/20 05/04/20 Range/Units 09:45 11:48 12:19 WBC (3.0-10.3) x10-3/uL RBC (3.60-5.20) x10(6)uL Hgb (11.4-15.5) g/dL Hct (34.2-48.2) % MCV (76.7-100.5) fL MCH (23.9-33.9) pg MCHC (31.9-34.8) g/dL RDW (12.3-16.5) % Plt Count (151-488) x10(3)uL MPV (7.1-12.4) fL Neut % (Auto) (30.8-76.2) % Lymph % (Auto) (18.4-52.1) % [place] % (Auto) (4.4-15.7) % Eos % (Auto) (0.6-8.1) % Baso % (Auto) (0.2-1.5) % Neut # (Auto) (1.5-6.3) x10-3/uL Lymph # (Auto) (1.0-4.4) x10-3/uL [place] # (Auto) (0.3-1.0) x10-3/uL Eos # (Auto) (0.0-0.8) x10-3/uL Baso # (Auto) (0.0-0.1) x10-3/uL Sodium (135-145) mmol/L Potassium (3.5-5.3) mmol/L Chloride (100-110) mmol/L Carbon Dioxide (21-32) mmol/L BUN (7-18) mg/dL Creatinine (0.55-1.02) mg/dL Est Cr Clr Drug Dosing Estimated GFR (MDRD) (>60) BUN/Creatinine Ratio (9-20) Glucose (80-116) mg/dL POC Glucose 161 H (74-100) mg/dL Hemoglobin A1c (<5.7) % Calcium (8.6-10.2) mg/dL Total Bilirubin (0.1-1.3) mg/dL AST (5-25) IU/L ALT (12-36) U/L Alkaline Phosphatase (56-112) IU/L Troponin I (4.0-60.3) pg/mL Total Protein (6.0-8.0) g/dL Albumin (3.2-4.6) g/dL Globulin g/dL Albumin/Globulin Ratio TSH, Ultra Sensitive (0.36-3.74) IU/mL Urine Color Yellow (YELLOW) Urine Appearance Clear (CLEAR) Urine pH 7.0 H (5.0-6.5) Ur Specific [place] 1.010 (1.010-1.025) Urine Protein Trace (NEGATIVE) mg/dL Urine Glucose (UA) Normal (NORMAL) mg/dL Urine Ketones 15 H (NEGATIVE) mg/dL Urine Occult Blood Negative (NEGATIVE) Urine Nitrite Negative (NEGATIVE) Urine Bilirubin Negative (NEGATIVE) Urine Urobilinogen Normal (NEGATIVE) mg/dL Ur Leukocyte Esterase Negative (NEGATIVE) U Hyaline Cast (Auto) Many H (NS) Urine RBC 0-5 (0-5) Urine WBC 0-5 (0-5) Ur Squamous Epith Cells Occasional (NS,R,O) Urine Bacteria Rare H (NS) Fine Granular Casts Moderate H (NS) Coarse Granular Casts Moderate H (NS) SARS-CoV-2 RNA (SONIA) Negative (NEGATIVE) 05/04/20 05/04/20 05/05/20 Range/Units 17:03 20:58 06:35 WBC 3.5 (3.0-10.3) x10-3/uL RBC 4.50 (3.60-5.20) x10(6)uL Hgb 13.7 (11.4-15.5) g/dL Hct 40.6 (34.2-48.2) % MCV 90.3 (76.7-100.5) fL MCH 30.5 (23.9-33.9) pg MCHC 33.8 (31.9-34.8) g/dL RDW 13.9 (12.3-16.5) % Plt Count 167 (151-488) x10(3)uL MPV 8.0 (7.1-12.4) fL Neut % (Auto) 65.7 (30.8-76.2) % Lymph % (Auto) 22.5 (18.4-52.1) % [place] % (Auto) 9.9 (4.4-15.7) % Eos % (Auto) 1.5 (0.6-8.1) % Baso % (Auto) 0.4 (0.2-1.5) % Neut # (Auto) 2.3 (1.5-6.3) x10-3/uL Lymph # (Auto) 0.8 L (1.0-4.4) x10-3/uL [place] # (Auto) 0.3 (0.3-1.0) x10-3/uL Eos # (Auto) 0.1 (0.0-0.8) x10-3/uL Baso # (Auto) 0.0 (0.0-0.1) x10-3/uL Sodium (135-145) mmol/L Potassium (3.5-5.3) mmol/L Chloride (100-110) mmol/L Carbon Dioxide (21-32) mmol/L BUN (7-18) mg/dL Creatinine (0.55-1.02) mg/dL Est Cr Clr Drug Dosing Estimated GFR (MDRD) (>60) BUN/Creatinine Ratio (9-20) Glucose (80-116) mg/dL POC Glucose 106 H 113 H (74-100) mg/dL Hemoglobin A1c (<5.7) % Calcium (8.6-10.2) mg/dL Total Bilirubin (0.1-1.3) mg/dL AST (5-25) IU/L ALT (12-36) U/L Alkaline Phosphatase (56-112) IU/L Troponin I (4.0-60.3) pg/mL Total Protein (6.0-8.0) g/dL Albumin (3.2-4.6) g/dL Globulin g/dL Albumin/Globulin Ratio TSH, Ultra Sensitive (0.36-3.74) IU/mL Urine Color (YELLOW) Urine Appearance (CLEAR) Urine pH (5.0-6.5) Ur Specific [place] (1.010-1.025) Urine Protein (NEGATIVE) mg/dL Urine Glucose (UA) (NORMAL) mg/dL Urine Ketones (NEGATIVE) mg/dL Urine Occult Blood (NEGATIVE) Urine Nitrite (NEGATIVE) Urine Bilirubin (NEGATIVE) Urine Urobilinogen (NEGATIVE) mg/dL Ur Leukocyte Esterase (NEGATIVE) U Hyaline Cast (Auto) (NS) Urine RBC (0-5) Urine WBC (0-5) Ur Squamous Epith Cells (NS,R,O) Urine Bacteria (NS) Fine Granular Casts (NS) Coarse Granular Casts (NS) SARS-CoV-2 RNA (SONIA) (NEGATIVE) 05/05/20 05/05/20 Range/Units 06:35 06:35 WBC (3.0-10.3) x10-3/uL RBC (3.60-5.20) x10(6)uL Hgb (11.4-15.5) g/dL Hct (34.2-48.2) % MCV (76.7-100.5) fL MCH (23.9-33.9) pg MCHC (31.9-34.8) g/dL RDW (12.3-16.5) % Plt Count (151-488) x10(3)uL MPV (7.1-12.4) fL Neut % (Auto) (30.8-76.2) % Lymph % (Auto) (18.4-52.1) % [place] % (Auto) (4.4-15.7) % Eos % (Auto) (0.6-8.1) % Baso % (Auto) (0.2-1.5) % Neut # (Auto) (1.5-6.3) x10-3/uL Lymph # (Auto) (1.0-4.4) x10-3/uL [place] # (Auto) (0.3-1.0) x10-3/uL Eos # (Auto) (0.0-0.8) x10-3/uL Baso # (Auto) (0.0-0.1) x10-3/uL Sodium 134 L (135-145) mmol/L Potassium 3.9 (3.5-5.3) mmol/L Chloride 99 L (100-110) mmol/L Carbon Dioxide 27 (21-32) mmol/L BUN 8 (7-18) mg/dL Creatinine 0.6 (0.55-1.02) mg/dL Est Cr Clr Drug Dosing 82.87 Estimated GFR (MDRD) > 60 (>60) BUN/Creatinine Ratio 13.3 (9-20) Glucose 92 (80-116) mg/dL POC Glucose (74-100) mg/dL Hemoglobin A1c (<5.7) % Calcium 8.7 (8.6-10.2) mg/dL Total Bilirubin 0.7 (0.1-1.3) mg/dL AST 14 D (5-25) IU/L ALT 20 (12-36) U/L Alkaline Phosphatase 58 (56-112) IU/L Troponin I 5.1 (4.0-60.3) pg/mL Total Protein 6.5 (6.0-8.0) g/dL Albumin 3.7 (3.2-4.6) g/dL Globulin 2.8 g/dL Albumin/Globulin Ratio 1.3 TSH, Ultra Sensitive (0.36-3.74) IU/mL Urine Color (YELLOW) Urine Appearance (CLEAR) Urine pH (5.0-6.5) Ur Specific [place] (1.010-1.025) Urine Protein (NEGATIVE) mg/dL Urine Glucose (UA) (NORMAL) mg/dL Urine Ketones (NEGATIVE) mg/dL Urine Occult Blood (NEGATIVE) Urine Nitrite (NEGATIVE) Urine Bilirubin (NEGATIVE) Urine Urobilinogen (NEGATIVE) mg/dL Ur Leukocyte Esterase (NEGATIVE) U Hyaline Cast (Auto) (NS) Urine RBC (0-5) Urine WBC (0-5) Ur Squamous Epith Cells (NS,R,O) Urine Bacteria (NS) Fine Granular Casts (NS) Coarse Granular Casts (NS) SARS-CoV-2 RNA (SONAI) (NEGATIVE) Med Orders - Current: Current Medications Enoxaparin Sodium (Lovenox) 40 mg SUBCUT Q24H [facility] Last Admin: 05/04/20 14:43 Dose: 40 mg Documented by: Sodium Chloride (Saline Flush) 10 ml FLUSH ASDIRECTED PRN PRN Reason: Keep Vein Open Last Admin: 05/04/20 09:00 Dose: 10 ml Documented by: Discontinued Medications Sodium Chloride (Normal Saline) 1,000 mls @ 100 mls/hr IV ASDIRECTED [facility] Last Admin: 05/04/20 09:11 Dose: 100 mls/hr Documented by: - Exam Quality Assessment: No: Supplemental Oxygen General: Alert, Oriented, Cooperative, No Acute Distress Lungs: Clear to Auscultation, Normal Respiratory Effort Cardiovascular: Regular Rate, Regular Rhythm, Murmurs Extremities: No Pedal Edema Sepsis Event Note - Evaluation Sepsis Screening Result: No Definite Risk - Focused Exam Vital Signs: Vital Signs Temp Pulse Resp BP Pulse Ox 05/05/20 04:26 97.9 F 75 16 133/85 98 05/04/20 23:49 97.7 F 71 16 141/87 H 98 - Problem List & Annotations (1) Hyponatremia SNOMED Code(s): 52267577 Code(s): E87.1 - HYPO-OSMOLALITY AND HYPONATREMIA Status: Acute Current Visit: Yes (2) Hypoglycemia SNOMED Code(s): 728346550 Code(s): E16.2 - HYPOGLYCEMIA, UNSPECIFIED Status: Acute Current Visit: Yes (3) Syncope SNOMED Code(s): 995688632 Code(s): R55 - SYNCOPE AND COLLAPSE Status: Acute Current Visit: Yes (4) Murmur, cardiac SNOMED Code(s): 50334902 Code(s): R01.1 - CARDIAC MURMUR, UNSPECIFIED Status: Acute Current Visit: Yes - Problem List Review Problem List Initiated/Reviewed/Updated: Yes - My Orders Last 24 Hours: My Active Orders 05/04/20 13:29 Patient Status [ADT] Routine Oxygen Therapy [RC] PRN Up With Assistance [RC] ASDIRECTED Vital Signs [RC] 08,12,16,20,00,04 Resuscitation Status Routine 05/04/20 13:30 Enoxaparin [Lovenox] 40 mg SUBCUT Q24H 05/04/20 13:32 Echo Comp w Cont [US] Routine Convert IV to Saline Lock [OM.PC] Routine 05/04/20 13:33 Telemetry Monitoring [Cardiac Monitoring] [RC] QSHIFT 05/04/20 15:35 Accu Check [Blood Glucose Check, Bedside] [RC] QIDACANDBED 05/04/20 Dinner Regular Diet [DIET] 05/05/20 05:11 EKG 12 Lead [EK] AM - Plan Plan:: EKG, telemetry normal. Sodium still 134 which is okay. Patient is asymptomatic so I will discharged today to home. She will refrain from exercising until she sees her primary provider. Echo be set up for tomorrow. I will discuss her care with her primary provider and try to get her in this week for follow-up.
--- NOTE | 2020-05-05 09:06 | PCM.DCSUM1 ---
Discharge Summary - Hospital Course Free Text/Narrative:: Hospital course-patient was admitted for observation. Initially the ER doc was going to send her home but she felt a little lightheaded so she was admitted. Her glucose was normal with her stay here. The first blood sugar was felt to be a lab error. Patient was put in telemetry for 24 hours and no arrhythmias or ectopy. She felt fine and had no symptoms. We did find a systolic murmur. Echo was set up for tomorrow. Sodium remained at 134 the rest of her labs are good. EKG is normal sinus rhythm without ST. We'll discharge to home and have her see her primary provider this week for further workup. This is most likely vasovagal to cause this. Brief History: This is a 64-year-old female patient that's previously healthy. She was in [place] and she felt lightheaded and like she was going to pass out. She told her and grabbed her mask and the next thing she no she was waking up on the ground. Her states that he called Dr. Green was attending a amish. Dr. Green talk to the ER nurses stated he couldn't feel a pulse and did to chest compressions and she woke up. After that she felt relatively well. Patient has lost 160 pounds in the last several years and That off. She has no medical problems. She had her tonsils removed and that's the only surgery she's had. She is only on [id number] medications. She denies diplopia, blurred vision, dysphagia, aphasia, lateralized weakness. She denies palpitations. She had an episode where she had like a syncopal episode in a car onetime years ago. He says she's been feeling well without cough, fevers, chills, runny nose. She says she does have some anxiety that she is able to maintain without medications. Ambulance arrived and her blood sugar was 24 and the gave her some glucose by mouth as she was easily able to take. It was over in the 80s when she arrived to the hospital. Diagnosis: Stroke: No - Discharge Data Discharge Date: 05/05/20 Discharge Disposition: Home, Self-Care 01 Condition: Good - Referral to Home Health Primary Care Physician: Gomez Gardner MD - Discharge Diagnosis/Problem(s) (1) Hyponatremia SNOMED Code(s): 78411700 ICD Code: E87.1 - HYPO-OSMOLALITY AND HYPONATREMIA Status: Acute Current Visit: Yes (2) Hypoglycemia SNOMED Code(s): 139880086 ICD Code: E16.2 - HYPOGLYCEMIA, UNSPECIFIED Status: Acute Current Visit: Yes Problem Details: Done by ambulance crew. Cerrillos to be a lab error. It was below 30 (3) Syncope SNOMED Code(s): 976393567 ICD Code: R55 - SYNCOPE AND COLLAPSE Status: Acute Current Visit: Yes (4) Murmur, cardiac SNOMED Code(s): 39978166 ICD Code: R01.1 - CARDIAC MURMUR, UNSPECIFIED Status: Acute Current Visit: Yes - Patient Instructions Diet: Regular Diet as Tolerated Activity: As Tolerated Driving: May Drive Today Showering/Bathing: May Shower Other/Special Instructions: 1. Check with Dr. Gardner this week. 2. Echocardiogram ordered outpatient. - Discharge Plan *PRESCRIPTION DRUG MONITORING PROGRAM REVIEWED*: No *COPY OF PRESCRIPTION DRUG MONITORING REPORT IN PATIENT AUGUSTIN: No Home Medications: Home Meds Aspirin [Adult Low Dose Aspirin EC] 81 mg PO DAILY 05/04/20 [History] Folic Acid 0 mg PO DAILY 05/04/20 [History] Vit A/C/E AC/Znox/Cupric Oxide [Eye Vitamin-Minerals Tablet] 1 tab PO DAILY 05/04/20 [History] Patient Handouts: Hypoglycemia, Syncope, [id number], Hypoglycemia, [id number] Forms: ED Department Discharge Referrals: Gomez Gardner MD [Primary Care Provider] - - Discharge Summary/Plan Comment DC Time >30 min.: No - Patient Data Vitals - Most Recent: Last Vital Signs Temp 97.9 F 05/05/20 04:26 Pulse 75 05/05/20 04:26 Resp 16 05/05/20 04:26 BP 133/85 05/05/20 04:26 Pulse Ox 98 05/05/20 04:26 Orthostatic Blood Pressure [ 122/89 Standing] Orthostatic Blood Pressure [ 120/68 Sitting] Orthostatic Blood Pressure [ 112/62 Supine] Weight - Most Recent: 170 lb 1 oz Lab Results - Last 24 hrs: Laboratory Results - last 24 hr 01/03/21 01/03/21 01/03/21 Range/Units 09:15 09:15 09:15 WBC 7.2 (3.0-10.3) x10-3/uL RBC 4.93 (3.60-5.20) x10(6)uL Hgb 14.9 (11.4-15.5) g/dL Hct 44.2 (34.2-48.2) % MCV 89.8 (76.7-100.5) fL MCH 30.2 (23.9-33.9) pg MCHC 33.6 (31.9-34.8) g/dL RDW 13.6 (12.3-16.5) % Plt Count 185 (151-488) x10(3)uL MPV 7.6 (7.1-12.4) fL Neut % (Auto) 81.7 H (30.8-76.2) % Lymph % (Auto) 11.9 L (18.4-52.1) % [place] % (Auto) 5.4 (4.4-15.7) % Eos % (Auto) 0.6 (0.6-8.1) % Baso % (Auto) 0.4 (0.2-1.5) % Neut # (Auto) 5.9 (1.5-6.3) x10-3/uL Lymph # (Auto) 0.9 L (1.0-4.4) x10-3/uL [place] # (Auto) 0.4 (0.3-1.0) x10-3/uL Eos # (Auto) 0.0 (0.0-0.8) x10-3/uL Baso # (Auto) 0.0 (0.0-0.1) x10-3/uL Sodium 134 L (135-145) mmol/L Potassium 4.2 (3.5-5.3) mmol/L Chloride 98 L (100-110) mmol/L Carbon Dioxide 24 (21-32) mmol/L BUN 11 (7-18) mg/dL Creatinine 0.8 (0.55-1.02) mg/dL Est Cr Clr Drug Dosing TNP Estimated GFR (MDRD) > 60 (>60) BUN/Creatinine Ratio 13.8 (9-20) Glucose 140 H (80-116) mg/dL POC Glucose (74-100) mg/dL Hemoglobin A1c (<5.7) % Calcium 9.1 (8.6-10.2) mg/dL Total Bilirubin 0.7 (0.1-1.3) mg/dL AST 19 (5-25) IU/L ALT 21 (12-36) U/L Alkaline Phosphatase 62 (56-112) IU/L Troponin I < 4.0 L (4.0-60.3) pg/mL Total Protein 6.9 (6.0-8.0) g/dL Albumin 4.1 (3.2-4.6) g/dL Globulin 2.8 g/dL Albumin/Globulin Ratio 1.5 TSH, Ultra Sensitive (0.36-3.74) IU/mL Urine Color (YELLOW) Urine Appearance (CLEAR) Urine pH (5.0-6.5) Ur Specific [place] (1.010-1.025) Urine Protein (NEGATIVE) mg/dL Urine Glucose (UA) (NORMAL) mg/dL Urine Ketones (NEGATIVE) mg/dL Urine Occult Blood (NEGATIVE) Urine Nitrite (NEGATIVE) Urine Bilirubin (NEGATIVE) Urine Urobilinogen (NEGATIVE) mg/dL Ur Leukocyte Esterase (NEGATIVE) U Hyaline Cast (Auto) (NS) Urine RBC (0-5) Urine WBC (0-5) Ur Squamous Epith Cells (NS,R,O) Urine Bacteria (NS) Fine Granular Casts (NS) Coarse Granular Casts (NS) SARS-CoV-2 RNA (SONIA) (NEGATIVE) 05/04/20 05/04/20 05/04/20 Range/Units 09:15 09:15 09:45 WBC (3.0-10.3) x10-3/uL RBC (3.60-5.20) x10(6)uL Hgb (11.4-15.5) g/dL Hct (34.2-48.2) % MCV (76.7-100.5) fL MCH (23.9-33.9) pg MCHC (31.9-34.8) g/dL RDW (12.3-16.5) % Plt Count (151-488) x10(3)uL MPV (7.1-12.4) fL Neut % (Auto) (30.8-76.2) % Lymph % (Auto) (18.4-52.1) % [place] % (Auto) (4.4-15.7) % Eos % (Auto) (0.6-8.1) % Baso % (Auto) (0.2-1.5) % Neut # (Auto) (1.5-6.3) x10-3/uL Lymph # (Auto) (1.0-4.4) x10-3/uL [place] # (Auto) (0.3-1.0) x10-3/uL Eos # (Auto) (0.0-0.8) x10-3/uL Baso # (Auto) (0.0-0.1) x10-3/uL Sodium (135-145) mmol/L Potassium (3.5-5.3) mmol/L Chloride (100-110) mmol/L Carbon Dioxide (21-32) mmol/L BUN (7-18) mg/dL Creatinine (0.55-1.02) mg/dL Est Cr Clr Drug Dosing Estimated GFR (MDRD) (>60) BUN/Creatinine Ratio (9-20) Glucose (80-116) mg/dL POC Glucose (74-100) mg/dL Hemoglobin A1c 4.9 (<5.7) % Calcium (8.6-10.2) mg/dL Total Bilirubin (0.1-1.3) mg/dL AST (5-25) IU/L ALT (12-36) U/L Alkaline Phosphatase (56-112) IU/L Troponin I (4.0-60.3) pg/mL Total Protein (6.0-8.0) g/dL Albumin (3.2-4.6) g/dL Globulin g/dL Albumin/Globulin Ratio TSH, Ultra Sensitive 3.67 (0.36-3.74) IU/mL Urine Color Yellow (YELLOW) Urine Appearance Clear (CLEAR) Urine pH 7.0 H (5.0-6.5) Ur Specific [place] 1.010 (1.010-1.025) Urine Protein Trace (NEGATIVE) mg/dL Urine Glucose (UA) Normal (NORMAL) mg/dL Urine Ketones 15 H (NEGATIVE) mg/dL Urine Occult Blood Negative (NEGATIVE) Urine Nitrite Negative (NEGATIVE) Urine Bilirubin Negative (NEGATIVE) Urine Urobilinogen Normal (NEGATIVE) mg/dL Ur Leukocyte Esterase Negative (NEGATIVE) U Hyaline Cast (Auto) Many H (NS) Urine RBC 0-5 (0-5) Urine WBC 0-5 (0-5) Ur Squamous Epith Cells Occasional (NS,R,O) Urine Bacteria Rare H (NS) Fine Granular Casts Moderate H (NS) Coarse Granular Casts Moderate H (NS) SARS-CoV-2 RNA (SONIA) (NEGATIVE) 05/04/20 05/04/20 05/04/20 Range/Units 11:48 12:19 17:03 WBC (3.0-10.3) x10-3/uL RBC (3.60-5.20) x10(6)uL Hgb (11.4-15.5) g/dL Hct (34.2-48.2) % MCV (76.7-100.5) fL MCH (23.9-33.9) pg MCHC (31.9-34.8) g/dL RDW (12.3-16.5) % Plt Count (151-488) x10(3)uL MPV (7.1-12.4) fL Neut % (Auto) (30.8-76.2) % Lymph % (Auto) (18.4-52.1) % [place] % (Auto) (4.4-15.7) % Eos % (Auto) (0.6-8.1) % Baso % (Auto) (0.2-1.5) % Neut # (Auto) (1.5-6.3) x10-3/uL Lymph # (Auto) (1.0-4.4) x10-3/uL [place] # (Auto) (0.3-1.0) x10-3/uL Eos # (Auto) (0.0-0.8) x10-3/uL Baso # (Auto) (0.0-0.1) x10-3/uL Sodium (135-145) mmol/L Potassium (3.5-5.3) mmol/L Chloride (100-110) mmol/L Carbon Dioxide (21-32) mmol/L BUN (7-18) mg/dL Creatinine (0.55-1.02) mg/dL Est Cr Clr Drug Dosing Estimated GFR (MDRD) (>60) BUN/Creatinine Ratio (9-20) Glucose (80-116) mg/dL POC Glucose 161 H 106 H (74-100) mg/dL Hemoglobin A1c (<5.7) % Calcium (8.6-10.2) mg/dL Total Bilirubin (0.1-1.3) mg/dL AST (5-25) IU/L ALT (12-36) U/L Alkaline Phosphatase (56-112) IU/L Troponin I (4.0-60.3) pg/mL Total Protein (6.0-8.0) g/dL Albumin (3.2-4.6) g/dL Globulin g/dL Albumin/Globulin Ratio TSH, Ultra Sensitive (0.36-3.74) IU/mL Urine Color (YELLOW) Urine Appearance (CLEAR) Urine pH (5.0-6.5) Ur Specific [place] (1.010-1.025) Urine Protein (NEGATIVE) mg/dL Urine Glucose (UA) (NORMAL) mg/dL Urine Ketones (NEGATIVE) mg/dL Urine Occult Blood (NEGATIVE) Urine Nitrite (NEGATIVE) Urine Bilirubin (NEGATIVE) Urine Urobilinogen (NEGATIVE) mg/dL Ur Leukocyte Esterase (NEGATIVE) U Hyaline Cast (Auto) (NS) Urine RBC (0-5) Urine WBC (0-5) Ur Squamous Epith Cells (NS,R,O) Urine Bacteria (NS) Fine Granular Casts (NS) Coarse Granular Casts (NS) SARS-CoV-2 RNA (SONIA) Negative (NEGATIVE) 05/04/20 05/05/20 05/05/20 Range/Units 20:58 06:35 06:35 WBC 3.5 (3.0-10.3) x10-3/uL RBC 4.50 (3.60-5.20) x10(6)uL Hgb 13.7 (11.4-15.5) g/dL Hct 40.6 (34.2-48.2) % MCV 90.3 (76.7-100.5) fL MCH 30.5 (23.9-33.9) pg MCHC 33.8 (31.9-34.8) g/dL RDW 13.9 (12.3-16.5) % Plt Count 167 (151-488) x10(3)uL MPV 8.0 (7.1-12.4) fL Neut % (Auto) 65.7 (30.8-76.2) % Lymph % (Auto) 22.5 (18.4-52.1) % [place] % (Auto) 9.9 (4.4-15.7) % Eos % (Auto) 1.5 (0.6-8.1) % Baso % (Auto) 0.4 (0.2-1.5) % Neut # (Auto) 2.3 (1.5-6.3) x10-3/uL Lymph # (Auto) 0.8 L (1.0-4.4) x10-3/uL [place] # (Auto) 0.3 (0.3-1.0) x10-3/uL Eos # (Auto) 0.1 (0.0-0.8) x10-3/uL Baso # (Auto) 0.0 (0.0-0.1) x10-3/uL Sodium 134 L (135-145) mmol/L Potassium 3.9 (3.5-5.3) mmol/L Chloride 99 L (100-110) mmol/L Carbon Dioxide 27 (21-32) mmol/L BUN 8 (7-18) mg/dL Creatinine 0.6 (0.55-1.02) mg/dL Est Cr Clr Drug Dosing 82.87 Estimated GFR (MDRD) > 60 (>60) BUN/Creatinine Ratio 13.3 (9-20) Glucose 92 (80-116) mg/dL POC Glucose 113 H (74-100) mg/dL Hemoglobin A1c (<5.7) % Calcium 8.7 (8.6-10.2) mg/dL Total Bilirubin 0.7 (0.1-1.3) mg/dL AST 14 D (5-25) IU/L ALT 20 (12-36) U/L Alkaline Phosphatase 58 (56-112) IU/L Troponin I (4.0-60.3) pg/mL Total Protein 6.5 (6.0-8.0) g/dL Albumin 3.7 (3.2-4.6) g/dL Globulin 2.8 g/dL Albumin/Globulin Ratio 1.3 TSH, Ultra Sensitive (0.36-3.74) IU/mL Urine Color (YELLOW) Urine Appearance (CLEAR) Urine pH (5.0-6.5) Ur Specific [place] (1.010-1.025) Urine Protein (NEGATIVE) mg/dL Urine Glucose (UA) (NORMAL) mg/dL Urine Ketones (NEGATIVE) mg/dL Urine Occult Blood (NEGATIVE) Urine Nitrite (NEGATIVE) Urine Bilirubin (NEGATIVE) Urine Urobilinogen (NEGATIVE) mg/dL Ur Leukocyte Esterase (NEGATIVE) U Hyaline Cast (Auto) (NS) Urine RBC (0-5) Urine WBC (0-5) Ur Squamous Epith Cells (NS,R,O) Urine Bacteria (NS) Fine Granular Casts (NS) Coarse Granular Casts (NS) SARS-CoV-2 RNA (SONIA) (NEGATIVE) 05/05/20 Range/Units 06:35 WBC (3.0-10.3) x10-3/uL RBC (3.60-5.20) x10(6)uL Hgb (11.4-15.5) g/dL Hct (34.2-48.2) % MCV (76.7-100.5) fL MCH (23.9-33.9) pg MCHC (31.9-34.8) g/dL RDW (12.3-16.5) % Plt Count (151-488) x10(3)uL MPV (7.1-12.4) fL Neut % (Auto) (30.8-76.2) % Lymph % (Auto) (18.4-52.1) % [place] % (Auto) (4.4-15.7) % Eos % (Auto) (0.6-8.1) % Baso % (Auto) (0.2-1.5) % Neut # (Auto) (1.5-6.3) x10-3/uL Lymph # (Auto) (1.0-4.4) x10-3/uL [place] # (Auto) (0.3-1.0) x10-3/uL Eos # (Auto) (0.0-0.8) x10-3/uL Baso # (Auto) (0.0-0.1) x10-3/uL Sodium (135-145) mmol/L Potassium (3.5-5.3) mmol/L Chloride (100-110) mmol/L Carbon Dioxide (21-32) mmol/L BUN (7-18) mg/dL Creatinine (0.55-1.02) mg/dL Est Cr Clr Drug Dosing Estimated GFR (MDRD) (>60) BUN/Creatinine Ratio (9-20) Glucose (80-116) mg/dL POC Glucose (74-100) mg/dL Hemoglobin A1c (<5.7) % Calcium (8.6-10.2) mg/dL Total Bilirubin (0.1-1.3) mg/dL AST (5-25) IU/L ALT (12-36) U/L Alkaline Phosphatase (56-112) IU/L Troponin I 5.1 (4.0-60.3) pg/mL Total Protein (6.0-8.0) g/dL Albumin (3.2-4.6) g/dL Globulin g/dL Albumin/Globulin Ratio TSH, Ultra Sensitive (0.36-3.74) IU/mL Urine Color (YELLOW) Urine Appearance (CLEAR) Urine pH (5.0-6.5) Ur Specific [place] (1.010-1.025) Urine Protein (NEGATIVE) mg/dL Urine Glucose (UA) (NORMAL) mg/dL Urine Ketones (NEGATIVE) mg/dL Urine Occult Blood (NEGATIVE) Urine Nitrite (NEGATIVE) Urine Bilirubin (NEGATIVE) Urine Urobilinogen (NEGATIVE) mg/dL Ur Leukocyte Esterase (NEGATIVE) U Hyaline Cast (Auto) (NS) Urine RBC (0-5) Urine WBC (0-5) Ur Squamous Epith Cells (NS,R,O) Urine Bacteria (NS) Fine Granular Casts (NS) Coarse Granular Casts (NS) SARS-CoV-2 RNA (SONIA) (NEGATIVE) Med Orders - Current: Current Medications Enoxaparin Sodium (Lovenox) 40 mg SUBCUT Q24H [facility] Last Admin: 05/04/20 14:43 Dose: 40 mg Documented by: Sodium Chloride (Saline Flush) 10 ml FLUSH ASDIRECTED PRN PRN Reason: Keep Vein Open Last Admin: 05/04/20 09:00 Dose: 10 ml Documented by: Discontinued Medications Sodium Chloride (Normal Saline) 1,000 mls @ 100 mls/hr IV ASDIRECTED WILY Last Admin: 05/04/20 09:11 Dose: 100 mls/hr Documented by:
--- NOTE | 2020-05-05 10:16 | CR ---
INDICATION: Syncope. CHEST, TWO VIEWS: PA and lateral views of the chest 05/04/20 - no comparisons. The heart was normal in size and shape. The aorta is mildly tortuous with suggestion of minimal calcification at the arch. Overlying EKG leads are noted. Overlying snap noted. A definite active infiltrate or effusion was not identified. Bridging hyperostotic changes are noted in the mid to lower thoracic spine anteriorly of vertebral bodies. IMPRESSION: No definite acute process. MTDD
== END 2020-05-05 11:15 | disposition home or self-care (01) ==
LOC: FB.ED 08:43 → FB.MS 12:41 → UNDOADMOB 12:41
PROVIDERS: ADMIT Family Medicine; ATTEND Family Medicine
DX: E87.1 Hypo-osmolality and hyponatremia (principal); R55 Syncope and collapse; E16.2 Hypoglycemia, unspecified; Z20.822 Contact with and (suspected) exposure to COVID-19; Z79.82 Long term (current) use of aspirin; Z79.899 Other long term (current) drug therapy; Z90.89 Acquired absence of other organs
CPT/HCPCS: 36415; 70450; 71046; 80053; 81001; 82962; 83036; 84443; 84484; 85025; 93005; 96372; 99217; 99218; 99284; 99285-25; G0378; J1650; J7030; U0002

== ENCOUNTER 2020-07-26 01:29 | Emergency (ER) | payer BC ==
[2020-07-26] MEDS ORDERED: Sodium Chloride 0.9% 1,000 ML IV ONE (02:08)
--- NOTE | 2020-07-26 02:18 | EDM.PDOC ---
ED HPI GENERAL MEDICAL PROBLEM - General Chief Complaint: Syncope Stated Complaint: HEART PROBLEMS Time Seen by Provider: 07/26/20 01:45 Source of Information: Reports: Patient, Family History Limitations: Reports: No Limitations - History of Present Illness INITIAL COMMENTS - FREE TEXT/NARRATIVE: c/o syncope pt got up at night to go the bathroom, on returning to bedroom and as she was stepping into the bedroom she felt lightheaded and felt like she was going to pass out, she put her hand out to steady herself, then passed out without remembering floor, heard her hit the floor, he awoke and scrambled to turn the light on, pt was lying by the bed and was unresponsive, stated she had "agonal respirations" and that "she would be if I was not there," h e thumped her on the chest 3 times, pt aroused with a start and said "where am I, what are you doing" EMS was called and pt was transported here pt conversant to and EMS, she reports that she does not quite feel right in her head, difficulty to describe, no pain BS 83 and 88 by EMS no injuries EKG by EMS and in ER is wnl no loss of bladder or bowel, pt not jerking, not postictal in ED pt had a similar episode 3m and 2y ago 3m ago she was in caodaism and passed out, Dr Green was in the yazidism and could not get a pulse, he thumped on her chest several times and pt aroused, she had a BS 26 by EMS, was given glucopaste and D50 by EMS, pt reports that hospitalist Dr Ashton and PCP Dr Anne did not think she had a hypoglycemic episode as she was fully alert at the caodaism workup in ED (labs, CxR, head CT) was nondiagnostic, pt was admitted overnight and d/c'ed by Dr Ashton echo was done, on overnight telemetry, Holter not done, cardiology not consulted no daily meds except vitamins pt has 15 mg/dl ketone sin her urine today, as she did 3m ago pt is mildly orthostatic with BP 146/79 and HR 73 supine, BP 148/77 and HR 92 standing pt was not orthostatic 3m ago BP 112/62 and HR 78 supine, BP 122/89 and HR 84 standing 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 - Related Data Allergies Allergy/AdvReac Type Severity Reaction Status Date / Time No Known Allergies Allergy Verified 07/26/20 02:06 Home Meds: Home Meds Aspirin [Adult Low Dose Aspirin EC] 81 mg PO DAILY 05/04/20 [History] Vit A/C/E AC/Znox/Cupric Oxide [Eye Vitamin-Minerals Tablet] 1 tab PO DAILY 05/04/20 [History] [place]-3 Fatty Acids/Fish Oil [Fish Oil 1,000 mg Capsule] 2 cap DAILY 07/26/20 [History] Past Medical History HEENT History: Reports: Impaired Vision [employer]PER History: Reports: - Past Surgical History HEENT Surgical History: Reports: Tonsillectomy Social & Family History - Caffeine Use Caffeine Use: Reports: Soda Other Caffeine Use: diet coke ED ROS GENERAL - Review of Systems Review Of Systems: See Below Constitutional: Reports: No Symptoms HEENT: Reports: No Symptoms Respiratory: Reports: No Symptoms Cardiovascular: Reports: No Symptoms Endocrine: Reports: No Symptoms GI/Abdominal: Reports: No Symptoms : Reports: No Symptoms Musculoskeletal: Reports: No Symptoms Skin: Reports: No Symptoms Neurological: Reports: Syncope Psychiatric: Reports: No Symptoms Hematologic/Lymphatic: Reports: No Symptoms Immunologic: Reports: No Symptoms - Physical Exam Exam: See Below Exam Limited By: No Limitations General Appearance: Alert, WD/WN, No Apparent Distress Eye Exam: Bilateral Eye: EOMI, PERRL Ears: Hearing Grossly Normal Throat/Mouth: Normal Inspection, Normal Lips, Normal Oropharynx, Normal Voice, No Airway Compromise Head Exam: Atraumatic, Normocephalic Neck: Normal Inspection, Supple, Non-Tender, Full Range of Motion Respiratory/Chest: No Respiratory Distress, Lungs Clear, Normal Breath Sounds, No Accessory Muscle Use, Chest Non-Tender Cardiovascular: Regular Rate, Rhythm, No Edema, No Gallop, No JVD, No Murmur GI/Abdominal: Normal Bowel Sounds, Soft, Non-Tender, No Distention Neuro Exam (Abbreviated): Alert, Oriented, CN II-XII Intact, Normal Cognition, No Motor/Sensory Deficits. No: Disoriented, Slow to Respond, Memory Loss Remote Events, Memory Loss Recent Events, Sensory/Motor Deficit Back Exam: No: CVA Tenderness (R), CVA Tenderness (L) Extremities: Normal Inspection, Normal Range of Motion, Non-Tender Psychiatric: Normal Affect, Normal Mood Skin Exam: Warm, Dry, Intact, Normal Color, No Rash Course - Vital Signs Last Recorded V/S: Last Vital Signs Temp 36.4 C 07/26/20 01:30 Pulse 87 07/26/20 05:00 Resp 19 07/26/20 05:00 BP 137/76 07/26/20 05:00 Pulse Ox 98 07/26/20 05:00 Orthostatic Blood Pressure [ 147/88 Standing] Orthostatic Blood Pressure [ 148/77 Sitting] Orthostatic Blood Pressure [ 146/79 Supine] - Orders/Labs/Meds Orders: Active Orders 24 hr Category Date Time Status EKG Documentation Completion [RC] ASDIRECTED Care 07/26/20 02:09 Active Ang Chest [CT] Stat Exams 07/26/20 03:07 Taken Head wo Cont [CT] Stat Exams 07/26/20 02:08 Taken EKG 12 Lead [EK] Routine Ther 07/26/20 02:08 Ordered Labs: Laboratory Tests 07/26/20 07/26/20 07/26/20 Range/Units 01:35 01:35 01:35 WBC 4.0 (3.0-10.3) x10-3/uL RBC 4.39 (3.60-5.20) x10(6)uL Hgb 13.1 (11.4-15.5) g/dL Hct 38.5 (34.2-48.2) % MCV 87.6 (76.7-100.5) fL MCH 29.9 (23.9-33.9) pg MCHC 34.2 (31.9-34.8) g/dL RDW 13.2 (12.3-16.5) % Plt Count 234 (151-488) x10(3)uL MPV 8.4 (7.1-12.4) fL Neut % (Auto) 37.6 (30.8-76.2) % Lymph % (Auto) 52.0 (18.4-52.1) % [place] % (Auto) 7.6 (4.4-15.7) % Eos % (Auto) 2.1 (0.6-8.1) % Baso % (Auto) 0.7 (0.2-1.5) % Neut # (Auto) 1.5 (1.5-6.3) x10-3/uL Lymph # (Auto) 2.1 (1.0-4.4) x10-3/uL [place] # (Auto) 0.3 (0.3-1.0) x10-3/uL Eos # (Auto) 0.1 (0.0-0.8) x10-3/uL Baso # (Auto) 0.0 (0.0-0.1) x10-3/uL D-Dimer, Quantitative 1.15 H (0.0-0.59) mg/LFEU Sodium 134 L (135-145) mmol/L Potassium 3.8 (3.5-5.3) mmol/L Chloride 96 L (100-110) mmol/L Carbon Dioxide 25 (21-32) mmol/L BUN 11 (7-18) mg/dL Creatinine 0.7 (0.55-1.02) mg/dL Est Cr Clr Drug Dosing 74.02 mL/min Estimated GFR (MDRD) > 60 (>60) BUN/Creatinine Ratio 15.7 (9-20) Glucose 121 H (80-116) mg/dL Calcium 8.8 (8.6-10.2) mg/dL Total Bilirubin 0.3 (0.1-1.3) mg/dL AST 15 (5-25) IU/L ALT 18 (12-36) U/L Alkaline Phosphatase 70 (56-112) IU/L Troponin I (4.0-60.3) pg/mL C-Reactive Protein (0.5-0.9) mg/dL NT-Pro-B Natriuret Pep (<=125) pg/mL Total Protein 6.4 (6.0-8.0) g/dL Albumin 3.7 (3.2-4.6) g/dL Globulin 2.7 g/dL Albumin/Globulin Ratio 1.4 Urine Color (YELLOW) Urine Appearance (CLEAR) Urine pH (5.0-6.5) Ur Specific [place] (1.010-1.025) Urine Protein (NEGATIVE) mg/dL Urine Glucose (UA) (NORMAL) mg/dL Urine Ketones (NEGATIVE) mg/dL Urine Occult Blood (NEGATIVE) Urine Nitrite (NEGATIVE) Urine Bilirubin (NEGATIVE) Urine Urobilinogen (NEGATIVE) mg/dL Ur Leukocyte Esterase (NEGATIVE) Urine RBC (0-5) Urine WBC (0-5) Ur Squamous Epith Cells (NS,R,O) Amorphous Sediment Urine Bacteria (NS) 07/26/20 07/26/20 Range/Units 01:35 01:50 WBC (3.0-10.3) x10-3/uL RBC (3.60-5.20) x10(6)uL Hgb (11.4-15.5) g/dL Hct (34.2-48.2) % MCV (76.7-100.5) fL MCH (23.9-33.9) pg MCHC (31.9-34.8) g/dL RDW (12.3-16.5) % Plt Count (151-488) x10(3)uL MPV (7.1-12.4) fL Neut % (Auto) (30.8-76.2) % Lymph % (Auto) (18.4-52.1) % [place] % (Auto) (4.4-15.7) % Eos % (Auto) (0.6-8.1) % Baso % (Auto) (0.2-1.5) % Neut # (Auto) (1.5-6.3) x10-3/uL Lymph # (Auto) (1.0-4.4) x10-3/uL [place] # (Auto) (0.3-1.0) x10-3/uL Eos # (Auto) (0.0-0.8) x10-3/uL Baso # (Auto) (0.0-0.1) x10-3/uL D-Dimer, Quantitative (0.0-0.59) mg/LFEU Sodium (135-145) mmol/L Potassium (3.5-5.3) mmol/L Chloride (100-110) mmol/L Carbon Dioxide (21-32) mmol/L BUN (7-18) mg/dL Creatinine (0.55-1.02) mg/dL Est Cr Clr Drug Dosing mL/min Estimated GFR (MDRD) (>60) BUN/Creatinine Ratio (9-20) Glucose (80-116) mg/dL Calcium (8.6-10.2) mg/dL Total Bilirubin (0.1-1.3) mg/dL AST (5-25) IU/L ALT (12-36) U/L Alkaline Phosphatase (56-112) IU/L Troponin I 6.1 (4.0-60.3) pg/mL C-Reactive Protein 0.3 L (0.5-0.9) mg/dL NT-Pro-B Natriuret Pep 132 H (<=125) pg/mL Total Protein (6.0-8.0) g/dL Albumin (3.2-4.6) g/dL Globulin g/dL Albumin/Globulin Ratio Urine Color Yellow (YELLOW) Urine Appearance Slightly cloudy (CLEAR) Urine pH 8.0 H (5.0-6.5) Ur Specific [place] 1.015 (1.010-1.025) Urine Protein Negative (NEGATIVE) mg/dL Urine Glucose (UA) Normal (NORMAL) mg/dL Urine Ketones 15 H (NEGATIVE) mg/dL Urine Occult Blood Negative (NEGATIVE) Urine Nitrite Negative (NEGATIVE) Urine Bilirubin Negative (NEGATIVE) Urine Urobilinogen Normal (NEGATIVE) mg/dL Ur Leukocyte Esterase Moderate H (NEGATIVE) Urine RBC 0-5 (0-5) Urine WBC 0-5 (0-5) Ur Squamous Epith Cells Occasional (NS,R,O) Amorphous Sediment Moderate Urine Bacteria Rare H (NS) Meds: Medications Discontinued Medications Generic Name Dose Route Start Last Admin Trade Name Dmitriq PRN Reason Stop Dose Admin Sodium Chloride 1,000 mls @ 999 mls/hr 07/26/20 02:08 07/26/20 02:10 Normal Saline IV 07/26/20 03:08 999 mls/hr .BOLUS ONE Administration Iopamidol 75 ml 07/26/20 03:16 07/26/20 03:30 Iopamidol 755 Mg/Ml 75 Ml Bottle IV 07/26/20 03:17 75 ml ASDIRECTED ONE Administration - Re-Assessments/Exams Free Text/Narrative Re-Assessment/Exam: 07/26/20 04:36 elevated d-dimer 2x ULN, chest CTA neg echocardiogram 05-06-20 neg with EF 60% and normal chamber size pt states she intentionally lost 135 lbs slowly over the past several yrs and unintentionally lost 10 lbs over the past 3m wt 170.2 now on bedscale, wt 161.3 on admission 3m ago 07/26/20 05:01 pt reports she went to bed at 8:30p, drank 20 oz of Gatorade before going to bed as is her habit, she was up several times during the as typically occurs at night, had gone to the bathroom several times and walked in the schulte several times without symptoms call placed to [facility], waiting call back from hospitalist Dr Estrada pt is a candidate for further workup with cardiology consult, carotid u/s, lower ext dopplers (as f/u of inc'd d-dimer), outpt event monitor or loop recorder 07/26/20 05:25 Dr Estrada called back and was given report, he accepted pt in transfer, pt and agree to transfer, labs reviewed with them and all questions answered Departure - Departure Time of Disposition: 05:03 Disposition: DC/Tfer to [facility] 02 Condition: Good Clinical Impression: Syncope, Elevated d-dimer, Elevated brain natriuretic peptide (BNP) level, Ketonuria, Unintended weight loss, Hyponatremia - Discharge Information *PRESCRIPTION DRUG MONITORING PROGRAM REVIEWED*: Not Applicable *COPY OF PRESCRIPTION DRUG MONITORING REPORT IN PATIENT AUGUSTIN: Not Applicable Referrals: Gomez Gardner MD [Primary Care Provider] - Forms: ED Department Discharge Sepsis Event Note (ED) - Evaluation Sepsis Screening Result: No Definite Risk - Focused Exam Vital Signs: Vital Signs Temp Pulse Resp BP Pulse Ox 07/26/20 05:00 87 19 137/76 98 07/26/20 04:30 82 15 129/70 96 07/26/20 04:00 76 15 138/76 99 07/26/20 03:45 77 14 152/73 H 98 07/26/20 03:15 88 17 143/72 H 99 07/26/20 03:00 82 14 156/87 H 98 07/26/20 02:30 75 15 133/74 100 07/26/20 02:15 72 14 133/79 100 07/26/20 02:00 75 18 142/74 H 07/26/20 01:45 77 15 154/78 H 99 07/26/20 01:30 36.4 C 72 18 147/73 H 98 - My Orders Last 24 Hours: My Active Orders 07/26/20 02:08 Head wo Cont [CT] Stat EKG 12 Lead [EK] Routine 07/26/20 02:09 EKG Documentation Completion [RC] ASDIRECTED 07/26/20 03:07 Ang Chest [CT] Stat - Assessment/Plan Last 24 Hours: My Active Orders 07/26/20 02:08 Head wo Cont [CT] Stat EKG 12 Lead [EK] Routine 07/26/20 02:09 EKG Documentation Completion [RC] ASDIRECTED 07/26/20 03:07 Ang Chest [CT] Stat
[2020-07-26] MEDS ORDERED: Iopamidol 755 Mg/ML 75 ML Bottle IV ONE (03:16)
== END 2020-07-26 06:05 ==
LOC: FB.ED 01:29
DX: R55 Syncope and collapse (principal); E87.1 Hypo-osmolality and hyponatremia; R79.1 Abnormal coagulation profile; R82.4 Acetonuria; R63.4 Abnormal weight loss
CPT/HCPCS: 36415; 70450; 71275; 80053; 81001; 83880; 84484; 85025; 85379; 86140; 93005; 93010; 99284; 99285-25; J7030; Q9967

== ENCOUNTER 2020-08-09 12:30 | Emergency (ER) | payer BC ==
[2020-08-09] MEDS: Sodium Chloride 0.9% 10 ML Syringe FLUSH PRN ×3 (12:35→13:56)
[2020-08-09] MEDS ORDERED: Ondansetron 4 MG/2 ML SDV IVPUSH ONE (12:42)
[2020-08-09] MEDS ORDERED: amLODIPine 2.5 MG Tab PO ONE (13:03)
[2020-08-09] MEDS ORDERED: ALPRAZolam 0.5 MG Tab PO ONE (13:03)
--- NOTE | 2020-08-09 13:27 | EDM.PDOC ---
ED HPI GENERAL MEDICAL PROBLEM - General Chief Complaint: General Stated Complaint: REACTION TO MEDICATION Time Seen by Provider: 08/09/20 12:45 Source of Information: Reports: Patient, Family History Limitations: Reports: No Limitations - History of Present Illness INITIAL COMMENTS - FREE TEXT/NARRATIVE: States she was started on Escitalopram on tuesday , has had episodes of nausea, feeling sick to her stomach and lightheaded with no vomiting since she started the medication. did feel well on , yesterday evening , felt nauseated and lightheaded. this am woke up fell well , took medication and felt nauseated , rested for about 2 hrs and then when she got up still felt ill and decided to come in for evaluation At the same time she was asked to start Amlodipine for elevated BP . She declined to do that . Ask PCP and was allowed to wait 2 days before starting antihypertensive Of note now on presentation her BP is elevated at 170-180 systolic and greater t hen 90 diastolic pt denies chest pain , no sob , no fever or chills - Related Data Allergies Allergy/AdvReac Type Severity Reaction Status Date / Time No Known Allergies Allergy Verified 08/09/20 12:50 Home Meds: Home Meds Aspirin [Adult Low Dose Aspirin EC] 81 mg PO DAILY 05/04/20 [History] Vit A/C/E AC/Znox/Cupric Oxide [Eye Vitamin-Minerals Tablet] 1 tab PO DAILY 05/04/20 [History] [place]-3 Fatty Acids/Fish Oil [Fish Oil 1,000 mg Capsule] 2 cap PO DAILY 07/26/20 [History] ALPRAZolam [Alprazolam] 0.5 mg PO BID PRN #10 tablet 08/09/20 [Rx] Escitalopram [Lexapro] 10 mg PO DAILY 08/09/20 [History] Ondansetron [Zofran ODT] 4 mg PO Q6H PRN #30 tab.dis 08/09/20 [Rx] Past Medical History HEENT History: Reports: Impaired Vision Cardiovascular History: Reports: Syncope, Other (See Below) Other Cardiovascular History: Orthostatic Hypotension 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: Musculoskeletal History: Reports: Arthritis Psychiatric History: Reports: Anxiety - Infectious Disease History Infectious Disease History: Reports: Chicken Pox - Past Surgical History HEENT Surgical History: Reports: Tonsillectomy Social & Family History - Family History Family Medical History: No Pertinent Family History - Tobacco Use Tobacco Use Status *Q: Never Tobacco User - Caffeine Use Caffeine Use: Reports: None Other Caffeine Use: diet coke - Recreational Drug Use Recreational Drug Use: No ED ROS GENERAL - Review of Systems Review Of Systems: See Below Constitutional: Reports: Fatigue HEENT: Reports: No Symptoms Respiratory: Reports: No Symptoms Cardiovascular: Reports: No Symptoms Endocrine: Reports: No Symptoms GI/Abdominal: Reports: Nausea. Denies: Vomiting : Reports: No Symptoms Musculoskeletal: Reports: No Symptoms Skin: Reports: No Symptoms Neurological: Reports: No Symptoms Psychiatric: Reports: No Symptoms Hematologic/Lymphatic: Reports: No Symptoms ED EXAM, GENERAL - Physical Exam Exam: See Below Exam Limited By: No Limitations General Appearance: Alert, WD/WN, No Apparent Distress Ears: Normal TMs Nose: Normal Inspection Throat/Mouth: Normal Oropharynx Head: Atraumatic, Normocephalic Neck: Normal Inspection, Supple, Non-Tender Respiratory/Chest: No Respiratory Distress, Lungs Clear, Normal Breath Sounds Cardiovascular: Normal Peripheral Pulses, Regular Rate, Rhythm GI/Abdominal: Soft, Non-Tender Back Exam: Normal Inspection, Full Range of Motion Extremities: Normal Inspection, Normal Range of Motion. No: Pedal Edema Neurological: Alert, Oriented, CN II-XII Intact, Normal Cognition, Normal Gait, Normal Reflexes, No Motor/Sensory Deficits Psychiatric: Normal Mood, Anxious Skin Exam: Warm, Dry, Intact Lymphatic: No Adenopathy #1 Interpretation EKG Date: 08/09/20 Time: 12:31 Rhythm: NSR Rate (Beats/Min): 91 [place]: Normal P-Wave: Present QRS: Normal ST-T: Normal QT: Normal Comparison: No Change (06/2020) Course - Vital Signs Last Recorded V/S: Last Vital Signs Temp 36.6 C 08/09/20 12:35 Pulse 67 08/09/20 13:50 Resp 14 08/09/20 13:50 BP 157/89 H 08/09/20 13:50 Pulse Ox 98 08/09/20 13:50 - Orders/Labs/Meds Orders: Active Orders 24 hr Category Date Time Status EKG Documentation Completion [RC] ASDIRECTED Care 08/09/20 12:46 Active Sodium Chloride 0.9% [Saline Flush] Med 08/09/20 12:35 Active 10 ml FLUSH ASDIRECTED PRN EKG 12 Lead [EK] Routine Ther 08/09/20 12:46 Ordered Medication Orders Sodium Chloride (Sodium Chloride 0.9% 10 Ml Syringe) 10 ml FLUSH ASDIRECTED PRN PRN Reason: IV Use Last Admin: 08/09/20 13:56 Dose: 10 ml Documented by: Admin: 08/09/20 12:45 Dose: 10 ml Documented by: Admin: 08/09/20 12:35 Dose: 10 ml Documented by: NIKHIL Labs: Laboratory Tests 08/09/20 08/09/20 08/09/20 Range/Units 13:02 13:02 13:02 WBC 2.8 L (3.0-10.3) x10-3/uL RBC 4.53 (3.60-5.20) x10(6)uL Hgb 13.4 (11.4-15.5) g/dL Hct 39.5 (34.2-48.2) % MCV 87.1 (76.7-100.5) fL MCH 29.6 (23.9-33.9) pg MCHC 34.0 (31.9-34.8) g/dL RDW 13.2 (12.3-16.5) % Plt Count 230 (151-488) x10(3)uL MPV 7.8 (7.1-12.4) fL Neut % (Auto) 69.5 (30.8-76.2) % Lymph % (Auto) 23.1 (18.4-52.1) % [place] % (Auto) 6.0 (4.4-15.7) % Eos % (Auto) 0.4 L (0.6-8.1) % Baso % (Auto) 1.0 (0.2-1.5) % Neut # (Auto) 1.9 (1.5-6.3) x10-3/uL Lymph # (Auto) 0.6 L (1.0-4.4) x10-3/uL [place] # (Auto) 0.2 L (0.3-1.0) x10-3/uL Eos # (Auto) 0.0 (0.0-0.8) x10-3/uL Baso # (Auto) 0.0 (0.0-0.1) x10-3/uL Sodium 131 L (135-145) mmol/L Potassium 4.0 (3.5-5.3) mmol/L Chloride 93 L (100-110) mmol/L Carbon Dioxide 24 (21-32) mmol/L BUN 10 (7-18) mg/dL Creatinine 0.7 (0.55-1.02) mg/dL Est Cr Clr Drug Dosing 74.02 mL/min Estimated GFR (MDRD) > 60 (>60) BUN/Creatinine Ratio 14.3 (9-20) Glucose 123 H (80-116) mg/dL Calcium 9.0 (8.6-10.2) mg/dL Magnesium 1.7 L (1.8-2.5) mg/dL Total Bilirubin 0.5 (0.1-1.3) mg/dL AST 18 D (5-25) IU/L ALT 28 D (12-36) U/L Alkaline Phosphatase 67 (56-112) IU/L NT-Pro-B Natriuret Pep 173 H (<=125) pg/mL Total Protein 6.7 (6.0-8.0) g/dL Albumin 3.9 (3.2-4.6) g/dL Globulin 2.8 g/dL Albumin/Globulin Ratio 1.4 Urine Color (YELLOW) Urine Appearance (CLEAR) Urine pH (5.0-6.5) Ur Specific [place] (1.010-1.025) Urine Protein (NEGATIVE) mg/dL Urine Glucose (UA) (NORMAL) mg/dL Urine Ketones (NEGATIVE) mg/dL Urine Occult Blood (NEGATIVE) Urine Nitrite (NEGATIVE) Urine Bilirubin (NEGATIVE) Urine Urobilinogen (NEGATIVE) mg/dL Ur Leukocyte Esterase (NEGATIVE) Urine RBC (0-5) Urine WBC (0-5) Ur Squamous Epith Cells (NS,R,O) 08/09/20 Range/Units 13:20 WBC (3.0-10.3) x10-3/uL RBC (3.60-5.20) x10(6)uL Hgb (11.4-15.5) g/dL Hct (34.2-48.2) % MCV (76.7-100.5) fL MCH (23.9-33.9) pg MCHC (31.9-34.8) g/dL RDW (12.3-16.5) % Plt Count (151-488) x10(3)uL MPV (7.1-12.4) fL Neut % (Auto) (30.8-76.2) % Lymph % (Auto) (18.4-52.1) % [place] % (Auto) (4.4-15.7) % Eos % (Auto) (0.6-8.1) % Baso % (Auto) (0.2-1.5) % Neut # (Auto) (1.5-6.3) x10-3/uL Lymph # (Auto) (1.0-4.4) x10-3/uL [place] # (Auto) (0.3-1.0) x10-3/uL Eos # (Auto) (0.0-0.8) x10-3/uL Baso # (Auto) (0.0-0.1) x10-3/uL Sodium (135-145) mmol/L Potassium (3.5-5.3) mmol/L Chloride (100-110) mmol/L Carbon Dioxide (21-32) mmol/L BUN (7-18) mg/dL Creatinine (0.55-1.02) mg/dL Est Cr Clr Drug Dosing mL/min Estimated GFR (MDRD) (>60) BUN/Creatinine Ratio (9-20) Glucose (80-116) mg/dL Calcium (8.6-10.2) mg/dL Magnesium (1.8-2.5) mg/dL Total Bilirubin (0.1-1.3) mg/dL AST (5-25) IU/L ALT (12-36) U/L Alkaline Phosphatase (56-112) IU/L NT-Pro-B Natriuret Pep (<=125) pg/mL Total Protein (6.0-8.0) g/dL Albumin (3.2-4.6) g/dL Globulin g/dL Albumin/Globulin Ratio Urine Color Yellow (YELLOW) Urine Appearance Clear (CLEAR) Urine pH 8.0 H (5.0-6.5) Ur Specific [place] 1.010 (1.010-1.025) Urine Protein Negative (NEGATIVE) mg/dL Urine Glucose (UA) Normal (NORMAL) mg/dL Urine Ketones 50 H (NEGATIVE) mg/dL Urine Occult Blood Negative (NEGATIVE) Urine Nitrite Negative (NEGATIVE) Urine Bilirubin Negative (NEGATIVE) Urine Urobilinogen Normal (NEGATIVE) mg/dL Ur Leukocyte Esterase Negative (NEGATIVE) Urine RBC 0-5 (0-5) Urine WBC 0-5 (0-5) Ur Squamous Epith Cells Occasional (NS,R,O) Meds: Medications Generic Name Dose Route Start Last Admin Trade Name Freq PRN Reason Stop Dose Admin Sodium Chloride 10 ml 08/09/20 12:35 08/09/20 13:56 Sodium Chloride 0.9% 10 Ml Syringe FLUSH 10 ml ASDIRECTED PRN Administration IV Use Discontinued Medications Generic Name Dose Route Start Last Admin Trade Name Freq PRN Reason Stop Dose Admin Alprazolam 0.5 mg 08/09/20 13:03 08/09/20 13:07 Alprazolam 0.5 Mg Tab PO 08/09/20 13:04 0.5 mg NOW ONE Administration Amlodipine Besylate 2.5 mg 08/09/20 13:03 08/09/20 13:10 Amlodipine 2.5 Mg Tab PO 08/09/20 13:04 2.5 mg ONETIME ONE Administration Furosemide 20 mg 08/09/20 13:44 08/09/20 13:46 Furosemide 40 Mg/4 Ml Vial IVPUSH 08/09/20 13:45 20 mg NOW ONE Administration Magnesium Oxide 800 mg 08/09/20 13:29 08/09/20 13:32 Magnesium Oxide 400 Mg Tab PO 08/09/20 13:30 800 mg ONETIME ONE Administration Ondansetron HCl 4 mg 08/09/20 12:42 08/09/20 12:45 Ondansetron 4 Mg/2 Ml Sdv IVPUSH 08/09/20 12:43 4 mg ONETIME ONE Administration - Re-Assessments/Exams Free Text/Narrative Re-Assessment/Exam: 08/09/20 15:55 pt had been monitored the whole time she was here with BP monitoring Noted to have persitent elevated BP labs drawn and noted to have low magnesium , this was supplemented then had persistently elevated BP: amlodipine was given since this was what was prescribed by PCP and pt had not started medication yet Anxiety seemed to persist she was given a dose of Xanax BP remain elevated as amlodipine slowly got in her system with her low sodium , one dose of 20mg lasix iv was given Gradually Bp decreased pt seemed less anxious Departure - Departure Time of Disposition: 15:30 Disposition: Home, Self-Care 01 Condition: Fair Clinical Impression: Essential hypertension, STEPH (generalized anxiety disorder), Hyponatremia - Discharge Information *PRESCRIPTION DRUG MONITORING PROGRAM REVIEWED*: Not Applicable *COPY OF PRESCRIPTION DRUG MONITORING REPORT IN PATIENT AUGUSTIN: Not Applicable Prescriptions: ALPRAZolam [Alprazolam] 0.5 mg PO BID PRN #10 tablet PRN Reason: Anxiety Ondansetron [Zofran ODT] 4 mg PO Q6H PRN #30 tab.dis PRN Reason: Nausea Instructions: Generalized Anxiety Disorder, Adult, Hyponatremia, [id number], Hypertension, Adult, [id number], Managing Your Hypertension Referrals: Gomez Gardner MD [Primary Care Provider] - Forms: ED Department Discharge Additional Instructions: 1) Continue with Amlodipine as prescribed tomorrow 2) Continue with all other medications 3) Call with any concerns Sepsis Event Note (ED) - Evaluation Sepsis Screening Result: No Definite Risk - Focused Exam Vital Signs: Vital Signs Temp Pulse Resp BP BP Pulse Ox 08/09/20 13:50 67 14 157/89 H 98 08/09/20 13:15 63 16 163/88 H 100 08/09/20 13:10 163/88 H 08/09/20 12:35 36.6 C 92 16 186/95 H 92 L - My Orders Last 24 Hours: My Active Orders 08/09/20 12:35 Sodium Chloride 0.9% [Saline Flush] 10 ml FLUSH ASDIRECTED PRN 08/09/20 12:46 EKG Documentation Completion [RC] ASDIRECTED EKG 12 Lead [EK] Routine - Assessment/Plan Last 24 Hours: My Active Orders 08/09/20 12:35 Sodium Chloride 0.9% [Saline Flush] 10 ml FLUSH ASDIRECTED PRN 08/09/20 12:46 EKG Documentation Completion [RC] ASDIRECTED EKG 12 Lead [EK] Routine
[2020-08-09] MEDS ORDERED: Magnesium Oxide 400 MG Tab PO ONE (13:29)
[2020-08-09] MEDS ORDERED: Furosemide 40 MG/4 ML VIAL IVPUSH ONE (13:44)
== END 2020-08-09 16:45 | disposition home or self-care (01) ==
LOC: FB.ED 12:30
DX: F41.1 Generalized anxiety disorder (principal); E87.1 Hypo-osmolality and hyponatremia; I10 Essential (primary) hypertension; Z79.82 Long term (current) use of aspirin
CPT/HCPCS: 36415; 80053; 81001; 83735; 83880; 85025; 93005; 96374; 96375; 99284; A9270; J1940; J2405